=== PATIENT | female | born 1995 | race Caucasian/White ===

== ENCOUNTER 2019-12-24 20:02 | Emergency (ER) | payer OTHER ==
[2019-12-24 20:10] VITALS: BP 137/86; PULSE 89; RESP 18; TEMP 97.6
[2019-12-24] MEDS ORDERED: IBUPROFEN 600 MG TAB PO STA (20:18)
[2019-12-24] MEDS ORDERED: ACET/COD 300 MG/30 MG STARTER PACK 6 TAB BTL PO STA (20:18)
--- NOTE | 2019-12-24 20:33 | ED ---
General Adult HPI - General Chief complaint: Extremity Injury, Lower Stated complaint: R Knee Injury Time Seen by Provider: 12/24/19 20:12 Source: patient, RN notes reviewed Mode of arrival: wheelchair Limitations: no limitations - History of Present Illness Initial comments: 24-year-old female with a past medical history of asthma, migraines presents to the emergency department for a chief complaint of right knee pain. 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 The dog was on the table she twisted to grab the dog and felt a pop in her knee. States it hurts on the sides of the knee. States it is painful to bear weight. States she is here because she started having some tingling in her right foot as well. She was also told by urgent care that she can work tomorrow and patient does not feel she will be able to. She took one Motrin earlier today but otherwise has not taken anything for pain.Patient has no other complaints at this time including shortness of breath, chest pain, abdominal pain, nausea or vomiting, headache, or visual changes. - Related Data Home Medications Medication Instructions Recorded Confirmed Buta/APAP/Caf/Cod [id number] 1 each PO DAILY PRN 11/11/15 11/15/15 [Fioricet w/Cod [id number]] Triprevisen (0.25mg) 0.25 mg PO DAILY 11/11/15 11/15/15 Allergies Allergy/AdvReac Type Severity Reaction Status Date / Time amoxicillin [Amoxicillin] Allergy Rash/Hives Verified 12/24/19 20:13 Review of Systems ROS Statement: Those systems with pertinent positive or pertinent negative responses have been documented in the HPI. ROS Other: All systems not noted in ROS Statement are negative. Past Medical History Past Medical History: Asthma, Neurologic Disorder Additional Past Medical History / Comment(s): migraines, vertigo History of Any Multi-Drug Resistant Organisms: None Reported Past Surgical History: No Surgical Hx Reported Additional Past Surgical History / Comment(s): BMT Past Anesthesia/Blood Transfusion Reactions: Motion Sickness Past Psychological History: No Psychological Hx Reported Past Alcohol Use History: None Reported Past Drug Use History: None Reported - Past Family History Mother Family Medical History: No Reported History General Exam Limitations: no limitations General appearance: alert, in no apparent distress Head exam: Present: atraumatic, normocephalic, normal inspection Eye exam: Present: normal appearance, PERRL, EOMI. Absent: scleral icterus, conjunctival injection, periorbital swelling ENT exam: Present: normal exam, mucous membranes moist Neck exam: Present: normal inspection. Absent: tenderness, meningismus, lymphadenopathy Respiratory exam: Present: normal lung sounds bilaterally. Absent: respiratory distress, wheezes, rales, rhonchi, stridor Cardiovascular Exam: Present: regular rate, normal rhythm, normal heart sounds. Absent: systolic murmur, diastolic murmur, rubs, gallop, clicks Extremities exam: Present: normal capillary refill (Capillary refill less than 2 seconds, DP pulses 2+ in the right lower extremity.), other (Generalized anterior right knee tenderness. Sensation is intact throughout the lower extremity.). Absent: full ROM (Patient has 45 flexion of the right knee. She has nearly full extension however full extension elicits pain.), pedal edema, joint swelling (No significant edema noted of the right knee.), calf tenderness (No calf pain, tenderness, erythema, edema. Negative Homans sign.) Course Vital Signs 12/24/19 20:05 Temperature 97.6 F Pulse Rate 89 Respiratory 18 Rate Blood Pressure 137/86 O2 Sat by Pulse 100 Oximetry Medical Decision Making - Medical Decision Making HPI and physical exam as documented. Neurovascular status intact. Ray of the right knee does not show any evidence of fracture. Patient however will follow up with orthopedics for further evaluation. She was given crutches as well as an work note. Discussed rice therapy. Keron wrap applied. She will return for any worsening symptoms. Knee immobilizer was not applied because patient prefers knee be slightly flexed for comfort. Disposition Clinical Impression: Knee pain, right Disposition: HOME SELF-CARE Condition: Good Instructions (If sedation given, give patient instructions): Knee Sprain (ED) Additional Instructions: Please take Motrin Tylenol for pain. If pain is severe take Tylenol [address] taking this. Rest ice and elevate the right knee. Use Keron wrap as needed. Use crutches as needed. Follow-up with orthopedics by calling for an appointment Sunday. Return to the emergency room for any worsening symptoms. Is patient prescribed a controlled substance at d/c from ED?: No Referrals: Bryon Cody DO [Primary Care Provider] - 1-2 days Chad Montano MD [STAFF PHYSICIAN] - 1-2 days Time of Disposition: 20:49
--- NOTE | 2019-12-24 20:35 | XR ---
EXAMINATION TYPE: XR knee complete RT DATE OF EXAM: 12/24/2019 COMPARISON: NONE HISTORY: Pain TECHNIQUE: 3 views FINDINGS: I see no fracture nor dislocation. Joint spaces are fairly normal. There is no definite kne e joint effusion. IMPRESSION: Negative right knee exam.
== END 2019-12-24 21:01 | disposition home or self-care (01) ==
LOC: EC 20:02
DX: M25.561 Pain in right knee (principal); Z79.899 Other long term (current) drug therapy; Z88.0 Allergy status to penicillin
CPT/HCPCS: 99283

== ENCOUNTER 2019-12-31 19:29 | Observation (INO) | payer OTHER ==
[2019-12-31] MEDS ORDERED: SODIUM CHLORIDE 0.9% 1,000 ML IV STA ×2 (20:02→20:03)
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
[2019-12-31 20:31] LABS: Basophils % (A) 0 %; Eosinophils # (A) 0.1 k/uL (0-0.7); Eosinophils % (A) 2 %; HCT 43.3 % (34.0-46.0); HGB 14.1 gm/dL (11.4-16.0); Lymphocytes # (A) 1.4 k/uL (1.0-4.8); Lymphocytes % (A) 16 %; MCH 28.5 pg (25.0-35.0); MCHC 32.5 g/dL (31.0-37.0); MCV 87.7 fL (80.0-100.0); Mean Platelet Volume 7.7; Monocytes # (A) 0.5 k/uL (0-1.0); Monocytes % (A) 5 %; Neutrophils # (A) 6.6 k/uL (1.3-7.7); Neutrophils % (A) 75 %; Platelet Count 270 k/uL (150-450); RBC 4.94 m/uL (3.80-5.40); RDW 12.5 % (11.5-15.5); WBC 8.7 k/uL (3.8-10.6)
[2019-12-31 20:43] LABS: ALT 22 U/L (4-34); AST 31 U/L (14-36); African American GFR (CKD) >90 (>60 ml/min/1.73 sqM); Albumin 4.3 g/dL (3.5-5.0); Alkaline Phosphatase 62 U/L (38-126); Anion Gap 9 mmol/L; Blood Urea Nitrogen 16 mg/dL (7-17); Calcium 9.2 mg/dL (8.4-10.2); Carbon Dioxide 20 mmol/L (22-30); Chloride 109 mmol/L (98-107); Glucose 101 mg/dL (74-99); Non-African American GFR(CKD) >90 (>60 ml/min/1.73 sqM); Potassium 4.4 mmol/L (3.5-5.1); Sodium 138 mmol/L (137-145); Total Bilirubin 0.6 mg/dL (0.2-1.3); Total Protein 7.3 g/dL (6.3-8.2)
[2019-12-31 20:54] LABS: INR 1.1 (<1.2); Partial Thromboplastin Time 22.1 sec (22.0-30.0); Prothrombin Time 10.8 sec (9.0-12.0)
--- NOTE | 2019-12-31 21:06 | XR ---
EXAMINATION TYPE: XR chest 2V DATE OF EXAM: 12/31/2019 COMPARISON: Chest x-ray 1995. HISTORY: Syncope and weakness. TECHNIQUE: Frontal and lateral views of the chest are obtained. FINDINGS: There is no focal air space opacity, pleural effusion, or pneumothorax seen. The cardiac silhouette size is within normal limits. The osseous structures are intact. IMPRESSION: No acute cardiopulmonary process.
--- NOTE | 2019-12-31 21:07 | CT ---
EXAMINATION TYPE: CT brain wo con DATE OF EXAM: 12/31/2019 COMPARISON: MRI brain May 14, 2015 HISTORY: 1st seizure CT DLP: 1087 mGycm. Automated Exposure Control for Dose Reduction was Utilized. TECHNIQUE: CT scan of the head is performed without contrast. FINDINGS: There is no acute intracranial hemorrhage, mass effect, or midline shift identified. The ventricles and sulci are within normal limits in size. [place]-white matter differentiation is preserve d. The globes are intact and the visualized sinuses are clear. IMPRESSION: No acute intracranial hemorrhage or midline shift is seen.
[2019-12-31 21:47] LABS: Appearance,Urine Clear (Clear); Bilirubin,Urine Negative (Negative); Blood,Urine Negative (Negative); Color,Urine Yellow; Glucose,Urine (UA) Negative (Negative); Ketones,Urine Negative (Negative); Leukocyte Esterase,Urine Negative (Negative); Nitrite,Urine Negative (Negative); PH, Urine 6.5 (5.0-8.0); Protein,Urine Negative (Negative); Specific Gravity,Urine 1.023 (1.001-1.035); Urobilinogen,Urine <2.0 mg/dL (<2.0)
[2019-12-31 22:00] LABS: Amphetamine Screen,Urine Not Detected (NotDetected); Barbiturate Screen,Urine Not Detected (NotDetected); Benzodiazepines Screen,Urine Not Detected (NotDetected); Cocaine Screen,Urine Not Detected (NotDetected); Methadone Screen, Urine Not Detected (NotDetected); Opiate Screen,Urine Not Detected (NotDetected); Oxycodone Screen, Urine Not Detected (NotDetected); Phencyclidine Screen,Urine Not Detected (NotDetected); Tricyclic Antidepressant,Urine Not Detected (NotDetected); Urn Cannabinoid Scrn Not Detected (NotDetected)
[2019-12-31] MEDS ORDERED: KETOROLAC 15 MG/ML 1 ML VIAL IVP STA (22:20)
[2019-12-31] MEDS ORDERED: ONDANSETRON 4 MG/2 ML VIAL IVP PRN (22:27)
[2019-12-31] MEDS ORDERED: ACETAMINOPHEN TAB 325 MG TAB PO PRN (22:27)
[2019-12-31] MEDS ORDERED: IBUPROFEN 400 MG TAB PO PRN (22:27)
[2019-12-31] MEDS ORDERED: NALOXONE 0.4 MG/ML 1 ML VIAL IV PRN (22:27)
[2019-12-31] MEDS ORDERED: LORazepam 2 MG/ML INJ IV PRN (23:08)
[2020-01-01] MEDS: KETOROLAC 15 MG/ML 1 ML VIAL IVP SCH ×3 (00:07→13:30)
[2020-01-01] MEDS: SODIUM CHLORIDE 0.9% 1,000 ML IV SCH ×2 (00:17→08:28)
[2020-01-01 02:40] LABS: Glucose,Whole Blood 105 mg/dL (75-99)
[2020-01-01 06:54] LABS: Glucose,Whole Blood 94 mg/dL (75-99)
[2020-01-01 11:45] LABS: Glucose,Whole Blood 82 mg/dL (75-99)
[2020-01-01 12:15] VITALS: BP 114/74; RESP 17; TEMP 97.8
--- NOTE | 2020-01-01 13:06 | P.CNNES ---
History of Present Illness Consult date: 01/01/20 Requesting physician: Beatriz Mueller Reason for Consult: New onset seizure History of Present Illness: Patient is a 24-year-old female brought to the hospital by ambulance yesterday at 7:30 PM for syncopal spell and secondary seizure activity. Patient states that she carries a diagnosis of POTS syndrome that was diagnosed 6 years ago after she had a syncopal spell at a grocery store. Patient's symptoms have been controlled with increase amount of water and salt intake. If she has any symptoms, she tries to sit down and let it pass. Patient states that yesterday she was standing when she felt a syncopal spell coming. She sat down in the swing, but then the symptoms continued and she had a seizure-like episode. Her mother noticed that she was not breathing. She slapped her on the chest a few times and patient came to. She was out for a couple minutes. After she came to, she had another episode. Patient's mother laid her down and called EMS. EMS flow sheet not available in the chart. Patient's vitals on arrival was blood pressure 122/68, pulse rate [address] head showed no acute intracranial hemorrhage or midline shift. Visualized paranasal sinuses are clear. Chest x-ray is normal EKG shows normal sinus rhythm. CBC, UA, urine drug screen negative. PT/PTT normal. Chem-20 normal. Patient had an MRI of brain done on 05/14/2015 for "recurrent falls and dizziness", which was normal. Patient states that about a month ago she had an episode of near syncope, when she was coming out of the bathtub, after she had taken a hot shower. She felt a visual blackout, fuzzy, stood there for a few minutes and the symptoms passed. Patient states that since the diagnoses of POTS 6 years ago, she has been having episodes sporadically, about once a year. She makes sure that she stays well hydrated and takes extra salt. Patient states that last night she was laying in the bed, and has some jerking of the lower extremities as well as the upper extremities. She did not lose consciousness. No tongue bite or urinary incontinence. Neurology was consulted to rule out seizures. Patient denies any history of epilepsy. Patient does not take tobacco or alcohol. Review of Systems Tiredness. Denies headache, double vision, denies focal numbness tingling weakness. Denies any chest pain shortness or breath wheezing or cough. All other review of systems negative. Past Medical History Past Medical History: Asthma Additional Past Medical History / Comment(s): migraines, vertigo, POTS, PCOS, 12/24/19 dislocated right knee and has been in a brace for it and 50% weight bear on that leg History of Any Multi-Drug Resistant Organisms: None Reported Past Surgical History: No Surgical Hx Reported Additional Past Surgical History / Comment(s): tubes put in ears Past Anesthesia/Blood Transfusion Reactions: Motion Sickness Past Psychological History: No Psychological Hx Reported Smoking Status: Never smoker Past Alcohol Use History: Rare Past Drug Use History: None Reported - Past Family History Mother Family Medical History: No Reported History Medications and Allergies Home Medications Medication Instructions Recorded Confirmed Type No Known Home Medications 12/31/19 12/31/19 History Allergies Allergy/AdvReac Type Severity Reaction Status Date / Time amoxicillin [Amoxicillin] Allergy Rash/Hives Verified 12/31/19 22:00 peanuts AdvReac Nausea Uncoded 12/31/19 23:41 Physical Examination - Vital Signs Vital Signs: Vital Signs Temp Pulse Pulse Pulse Pulse Pulse Resp 01/01/20 06:23 98.2 F 72 18 01/01/20 02:59 130 H 01/01/20 02:37 97.8 F 112 H 12/31/19 23:41 98.0 F 57 L 18 12/31/19 22:36 98.0 F 66 18 12/31/19 21:30 69 18 12/31/19 20:05 84 100 82 12/31/19 19:51 97.8 F 91 18 BP BP BP BP Pulse Ox 01/01/20 06:23 116/75 97 01/01/20 02:59 01/01/20 02:37 133/84 99 12/31/19 23:41 112/77 98 12/31/19 22:36 120/76 97 12/31/19 21:30 111/84 98 12/31/19 20:05 121/85 113/87 103/65 12/31/19 19:51 122/68 99 Intake and Output 12/31/19 01/01/20 01/01/20 22:59 06:59 14:59 Intake Total 400 Balance 400 Intake: Intake, IV Titration 400 Amount Sodium Chloride 0.9% 1, 400 000 ml @ 100 mls/hr IV . Q10H [facility] Rx#:[id number] Other: Voiding Method Toilet # Voids 2 2 Weight 83.461 kg 83.461 kg On examination patient is a young female, in no acute distress. Patient is alert awake oriented to time place and person. Speech and language functions are normal. Attention and concentration fund of knowledge is adequate. On cranial nerve examination pupils are round and reacting to light, visual noriega are full on confrontation, extraocular muscles are intact with no nystagmus. Face is symmetric, tongue protrudes to the midline. Palatal elevation and sensation normal. Hearing and shoulder shrug normal. On muscle strength testing there is no pronator drift and the strength is normal in arms and legs distally and proximally reflexes are 1+ and plantars downgoing. Sensory touch is equal. No ataxia for [id number] testing tone and bulk of muscles normal. Gait deferred. No carotid bruit, S1 and S2 audible. Peripheral pulses present. No peripheral edema. Abdomen soft nontender, chest clear. Results - Laboratory Findings CBC and BMP: 12/31/19 20:04 12/31/19 20:04 Abnormal Lab Findings: Abnormal Labs 12/31/19 01/01/20 20:04 02:38 Chloride 109 H Carbon Dioxide 20 L Glucose 101 H POC Glucose (mg/dL) 105 H Assessment and Plan Assessment: * Probable convulsive syncope. Doubt seizures. * History of POTS diagnosed 6 years ago. Plan: * EEG to evaluate for any interictal epileptiform activity. * Hydration. * Patient's heart rate has been fluctuating on telemetry, ranging between 40s to 130s. May consider cardiology evaluation, if indicated. Addendum: EEG is normal. No indication for antiepileptic medication. Check orthostatics. Neurologically clear for discharge.
--- NOTE | 2020-01-01 14:25 | P.CRDCN ---
History of Present Illness History of present illness: HISTORY OF PRESENTING ILLNESS This is a pleasant 24-year-old female past medical history significant for POTS, asthma and migraines. She used to follow with Dr. Holt 6 yrs ago w hen she was diagnosed with POTS, but hasn't followed up since. We have been asked to see in consultation for syncope. She is seen and examined sitting up in bed in no acute distress with her mother at the bedside. Since being diagnosed with pots 6 years ago she has about 1-2 episodes of near syncope per year. She states typically when this occurs she drinks saltwater and she feels better. Yesterday she felt an episode coming on. Her preceding symptoms are nausea, palpitations, burning in the midsternal region, flushed/warm sensation throughout her body and feeling lightheaded. She walked over to sit down on the swing in her backyard until the past. She was sitting there with her sister when she lost consciousness. According to the mother she had twitching in her arms and hands and her eyes were rolling back in her head. She began to turn barnett in color and was extremely clammy. She could not palpate a pulse and she was not visibly breathing. EMS was notified. By the time EMS arrived on scene she had become responsive. Last night while laying in bed she again started to feel flushed, anxious and palpitations. She also was acutely diaphoretic and telemetry indicated her heart rate went up to 140 and was sinus tachycardia. DIAGNOSTICS EKG reveals sinus mechanism with no acute ST or T-wave abnormalities. Chest xray negative for an acute cardiopulmonary process. CT of the brain unremarkable. Orthostatic vital signs negative for change. Laboratory reviewed, CBC unremarkable, sodium 138, potassium 4.4, creatinine 0.66, cardiac enzymes negative x1.. She takes no daily medications. REVIEW OF SYSTEMS At the time of my exam: CONSTITUTIONAL: Denies fever or chills. CARDIOVASCULAR: Denies chest pain, shortness of breath, orthopnea, PND or palpitations. RESPIRATORY: Denies cough. GASTROINTESTINAL: Denies abdominal pain, diarrhea, constipation, nausea or vomiting. MUSCULOSKELETAL: Denies myalgias. NEUROLOGIC: Denies numbness, tingling or weakness. ENDOCRINE: Denies fatigue, weight change, polydipsia or polyurina. GENITOURINARY: Denies burning, hematuria or urgency with micturation. HEMATOLOGIC: Denies history of anemia or bleeding. PHYSICAL EXAMINATION Blood pressure 114/74 heart rate 71 afebrile and maintaining oxygen saturation on room air. CONSTITUTIONAL: No apparent distress. HEENT: Head is normocephalic. Pupils are equal, round. Sclerae anicteric. Mucous membranes of the mouth are moist. No JVD. No carotid bruit. CHEST EXAMINATION: Lungs are clear to auscultation. No chest wall tenderness is noted on palpation or with deep breathing. HEART EXAMINATION: Regular rate and rhythm. S1, S2 heard. No murmurs, gallops or rub. ABDOMEN: Soft, nontender. Positive bowel sounds. EXTREMITIES: 2+ peripheral pulses, no lower extremity edema and no calf tend erness. NEUROLOGIC EXAMINATION: Patient is awake, alert and oriented x3. ASSESSMENT Syncope Sinus tachycardia History of POTS PLAN Last nights episode symptoms not consistent with POTS as she was laying down and had not recently changed positions. The episode that brought her in sounds like possible seizure activity, neuro is currently evaluating. Echocardiogram has been ordered and will be reviewed. Check TSH. Apply ZACK arellano. Ongoing telemetry monitoring. Thank you kindly for this consultation. Nurse Practitioner note has been reviewed, I agree with a documented findings and plan of care. Patient was seen and examined. Past Medical History Past Medical History: Asthma Additional Past Medical History / Comment(s): migraines, vertigo, POTS, PCOS, 12/24/19 dislocated right knee and has been in a brace for it and 50% weight bear on that leg History of Any Multi-Drug Resistant Organisms: None Reported Past Surgical History: No Surgical Hx Reported Additional Past Surgical History / Comment(s): tubes put in ears Past Anesthesia/Blood Transfusion Reactions: Motion Sickness Past Psychological History: No Psychological Hx Reported Smoking Status: Never smoker Past Alcohol Use History: Rare Past Drug Use History: None Reported - Past Family History Mother Family Medical History: No Reported History Medications and Allergies Home Medications Medication Instructions Recorded Confirmed Type No Known Home Medications 12/31/19 12/31/19 History Allergies Allergy/AdvReac Type Severity Reaction Status Date / Time amoxicillin [Amoxicillin] Allergy Rash/Hives Verified 12/31/19 22:00 peanuts AdvReac Nausea Uncoded 12/31/19 23:41 Physical Exam Vitals: Vital Signs Temp Pulse Pulse Pulse Pulse Pulse Resp 01/01/20 12:14 97.8 F 71 17 01/01/20 06:23 98.2 F 72 18 01/01/20 02:59 130 H 01/01/20 02:37 97.8 F 112 H 12/31/19 23:41 98.0 F 57 L 18 12/31/19 22:36 98.0 F 66 18 12/31/19 21:30 69 18 12/31/19 20:05 84 100 82 12/31/19 19:51 97.8 F 91 18 BP BP BP BP Pulse Ox 01/01/20 12:14 114/74 98 01/01/20 06:23 116/75 97 01/01/20 02:59 01/01/20 02:37 133/84 99 12/31/19 23:41 112/77 98 12/31/19 22:36 120/76 97 12/31/19 21:30 111/84 98 12/31/19 20:05 121/85 113/87 103/65 12/31/19 19:51 122/68 99 Intake and Output 12/31/19 01/01/20 01/01/20 22:59 06:59 14:59 Intake Total 400 Balance 400 Intake: Intake, IV Titration 400 Amount Sodium Chloride 0.9% 1, 400 000 ml @ 100 mls/hr IV . Q10H [facility] Rx#:[id number] Other: Voiding Method Toilet # Voids 2 2 Weight 83.461 kg 83.461 kg Results 12/31/19 20:04 12/31/19 20:04 Cardiac Enzymes 12/31/19 12/31/19 Range/Units 20:04 20:04 AST 31 (14-36) U/L Troponin I <0.012 (0.000-0.034) ng/mL Coagulation 12/31/19 Range/Units 20:04 PT 10.8 (9.0-12.0) sec APTT 22.1 (22.0-30.0) sec CBC 12/31/19 Range/Units 20:04 WBC 8.7 (3.8-10.6) k/uL RBC 4.94 (3.80-5.40) m/uL Hgb 14.1 (11.4-16.0) gm/dL Hct 43.3 (34.0-46.0) % Plt Count 270 (150-450) k/uL Comprehensive Metabolic Panel 12/31/19 Range/Units 20:04 Sodium 138 (137-145) mmol/L Potassium 4.4 (3.5-5.1) mmol/L Chloride 109 H (98-107) mmol/L Carbon Dioxide 20 L (22-30) mmol/L BUN 16 (7-17) mg/dL Creatinine 0.66 (0.52-1.04) mg/dL Glucose 101 H (74-99) mg/dL Calcium 9.2 (8.4-10.2) mg/dL AST 31 (14-36) U/L ALT 22 (4-34) U/L Alkaline Phosphatase 62 (38-126) U/L Total Protein 7.3 (6.3-8.2) g/dL Albumin 4.3 (3.5-5.0) g/dL Current Medications Generic Name Dose Route Start Last Admin Trade Name Freq PRN Reason Stop Dose Admin Acetaminophen 650 mg 12/31/19 22:27 Tylenol Tab PO Q6HR PRN Mild Pain or Fever > 100.5 Sodium Chloride 1,000 mls @ 100 mls/hr 12/31/19 22:30 01/01/20 08:28 Saline 0.9% IV 100 mls/hr .Q10H [facility] Administration Ibuprofen 400 mg 12/31/19 22:27 Motrin PO Q6HR PRN Mild Pain or Fever > 100.5 Ketorolac Tromethamine 15 mg 01/01/20 00:00 01/01/20 13:30 Toradol IVP 01/03/20 23:09 15 mg Q6HR [facility] Administration Lorazepam 1 mg 12/31/19 23:08 Ativan IV ONCE PRN Seizures Naloxone HCl 0.2 mg 12/31/19 22:27 Narcan IV Q2M PRN Opioid Reversal Ondansetron HCl 4 mg 12/31/19 22:27 Zofran IVP Q8HR PRN Nausea And Vomiting Intake and Output 12/31/19 01/01/20 01/01/20 22:59 06:59 14:59 Intake Total 400 Balance 400 Intake: Intake, IV Titration 400 Amount Sodium Chloride 0.9% 1, 400 000 ml @ 100 mls/hr IV . Q10H [facility] Rx#:[id number] Other: Voiding Method Toilet # Voids 2 2 Weight 83.461 kg 83.461 kg 12/31/19 20:04 12/31/19 20:04
--- NOTE | 2020-01-01 15:37 | P.HPIM ---
History of Present Illness 24-year-old pleasant female came in after a syncopal episode followed by seizure. Patient does have history of postural orthostatic tachycardia syndrome. Patient is not on any medications patient is on dietary management for that patient did not have any syncopal syncope for about any or. Patient had a normal like symptom that she is about to have a syncope felt lightheaded nauseous and had a syncope and the patient's mother who was present there felt like patient stopped breathing did even slapped her chest few times, patient the mother did not feel her pulse and patient started having seizures in the lower part of the body. Patient did not lose bowel or bladder Continence did not have any postictal symptoms. CT of the head is essentially within normal limits, rest of the workup is essentially within normal limits. 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 Patient is undergoing EEG. A s per neurology for EEG is negative patient will not need any medications for epilepsy and can be discharged. Cardiology was consulted as well. Echocardiogram was ordered. Review of Systems REVIEW OF SYSTEMS: CONSTITUTIONAL: No fever, no malaise, no fatigue. HEENT: No recent visual problems or hearing problems. Denied any sore throat. CARDIOVASCULAR: No chest pain, orthopnea, PND, no palpitations. PULMONARY: No shortness of breath, no cough, no hemoptysis. GASTROINTESTINAL: No diarrhea, no nausea, no vomiting, no abdominal pain. NEUROLOGICAL: No headaches, no weakness, no numbness. HEMATOLOGICAL: Denies any bleeding or petechiae. GENITOURINARY: Denies any burning micturition, frequency, or urgency. MUSCULOSKELETAL/RHEUMATOLOGICAL: Denies any joint pain, swelling, or any muscle pain. ENDOCRINE: Denies any polyuria or polydipsia. The rest of the 14-point review of systems is negative. Past Medical History Past Medical History: Asthma Additional Past Medical History / Comment(s): migraines, vertigo, POTS, PCOS, 12/24/19 dislocated right knee and has been in a brace for it and 50% weight bear on that leg History of Any Multi-Drug Resistant Organisms: None Reported Past Surgical History: No Surgical Hx Reported Additional Past Surgical History / Comment(s): tubes put in ears Past Anesthesia/Blood Transfusion Reactions: Motion Sickness Past Psychological History: No Psychological Hx Reported Smoking Status: Never smoker Past Alcohol Use History: Rare Past Drug Use History: None Reported - Past Family History Mother Family Medical History: No Reported History Medications and Allergies Home Medications Medication Instructions Recorded Confirmed Type No Known Home Medications 12/31/19 12/31/19 History Allergies Allergy/AdvReac Type Severity Reaction Status Date / Time amoxicillin [Amoxicillin] Allergy Rash/Hives Verified 12/31/19 22:00 peanuts AdvReac Nausea Uncoded 12/31/19 23:41 Physical Exam Vitals: Vital Signs Temp Pulse Pulse Pulse Pulse Pulse Resp 01/01/20 12:14 97.8 F 71 17 01/01/20 08:00 80 17 01/01/20 06:23 98.2 F 72 18 01/01/20 02:59 130 H 01/01/20 02:37 97.8 F 112 H 12/31/19 23:41 98.0 F 57 L 18 12/31/19 22:36 98.0 F 66 18 12/31/19 21:30 69 18 12/31/19 20:05 84 100 82 12/31/19 19:51 97.8 F 91 18 BP BP BP BP Pulse Ox 01/01/20 12:14 114/74 98 01/01/20 08:00 01/01/20 06:23 116/75 97 01/01/20 02:59 01/01/20 02:37 133/84 99 12/31/19 23:41 112/77 98 12/31/19 22:36 120/76 97 12/31/19 21:30 111/84 98 12/31/19 20:05 121/85 113/87 103/65 12/31/19 19:51 122/68 99 Intake and Output 01/01/20 01/01/20 01/01/20 06:59 14:59 22:59 Intake Total 400 1760 Balance 400 1760 Intake: Intake, IV Titration 400 800 Amount Sodium Chloride 0.9% 1, 400 800 000 ml @ 100 mls/hr IV . Q10H [facility] Rx#:[id number] Oral 960 Other: Voiding Method Toilet Toilet # Voids 2 5 Weight 83.461 kg PHYSICAL EXAMINATION: GENERAL: The patient is alert and oriented x3, not in any acute distress. Well developed, well nourished. HEENT: Pupils are round and equally reacting to light. EOMI. No scleral icterus. No conjunctival pallor. Normocephalic, atraumatic. No pharyngeal erythema. No thyromegaly. CARDIOVASCULAR: S1 and S2 present. No murmurs, rubs, or gallops. PULMONARY: Chest is clear to auscultation, no wheezing or crackles. ABDOMEN: Soft, nontender, nondistended, normoactive bowel sounds. No palpable organomegaly. MUSCULOSKELETAL: No joint swelling or deformity. EXTREMITIES: No cyanosis, clubbing, or pedal edema. NEUROLOGICAL: Gross neurological examination did not reveal any focal deficits. SKIN: No rashes. Results CBC & Chem 7: 12/31/19 20:04 12/31/19 20:04 Labs: Abnormal Lab Results - Last 24 Hours (Table) 12/31/19 01/01/20 Range/Units 20:04 02:38 Chloride 109 H (98-107) mmol/L Carbon Dioxide 20 L (22-30) mmol/L Glucose 101 H (74-99) mg/dL POC Glucose (mg/dL) 105 H (75-99) mg/dL Thrombosis Risk Factor Assmnt - Choose All That Apply Any of the Below Risk Factors Present?: Yes Each Factor Represents 1 point: Obesity (BMI >25) Other Risk Factors: No Other congenital or acquired thrombophilia - If yes, enter type in comment: No Thrombosis Risk Factor Assessment Total Risk Factor Score: 1 Thrombosis Risk Factor Assessment Level: Low Risk Assessment and Plan Plan: -Syncope with the secondary seizures, most probably convulsive syncope: Patient will undergo EEG if that's negative patient will be discharged I'll leave the decision of echocardiogram to cardiology. 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 Patient will be discharged if cleared by cardiology and neurology
--- NOTE | 2020-01-01 15:38 | P.DS ---
Providers Date of admission: 12/31/19 22:45 Attending physician: Carlos Manuel Cline Consults: 12/31/19 22:27 Consult Physician Stat Consulting Provider: Thai Barrera Consult Reason/Comments: new onset seizure Do you want consulting provider notified?: Yes 01/01/20 12:31 Consult Physician Routine Consulting Provider: [facility] Consult Reason/Comments: Syncope Do you want consulting provider notified?: Yes Primary care physician: Bryon Cody [facility] Hospital Course: Please refer to my history of present illness for further details Patient Condition at Discharge: Stable Plan - Discharge Summary Discharge Rx Participant: Yes New Discharge Prescriptions: No Action No Known Home Medications Discharge Medication List No Known Home Medications 12/31/19 [History] Follow up Appointment(s)/Referral(s): Giovani Holt MD [STAFF PHYSICIAN] - 1 Week Bryon Cody DO [Primary Care Provider] - 3 Days Discharge Disposition: HOME SELF-CARE
--- NOTE | 2020-01-01 15:55 | EEG ---
ELECTROENCEPHALOGRAM REPORT DATE OF SERVICE: 01/01/2020 PREAMBLE: This is a 24-year-old female with history of recurrent syncope, came with possible syncope versus seizure. This study is performed to evaluate for any epileptiform activity. EEG FINDINGS: This is a 21-channel routine EEG recording in a patient utilizing 10-20 international system with referential and bipolar montages. Background consists of well developed, well regulated, moderate voltage activity in 9-10 hertz alpha. Background is posterior- dominant and reactive to eye opening and closing. Photic driving response was seen with some flash frequencies. Mild drowsiness was seen, but deeper stages of sleep were not attained. No focal or generalized epileptiform activity was seen. Hyperventilation revealed no abnormalities. EKG channel lead revealed no arrhythmia. IMPRESSION: This is a normal awake and drowsy EEG. No focal, lateralized or epileptiform activity was seen. MMODL / IJN: [id number] /
[2020-01-01 16:11] VITALS: PULSE 82
--- NOTE | 2020-01-02 10:41 | ECHOF ---
Referral Reason:Syncope MEASUREMENTS -------- HEIGHT: 167.6 cm WEIGHT: 83.5 kg BP: RVIDd: 2.3 cm (< 3.3) IVSd: 0.7 cm (0.6 - 1.1) LVIDd: 4.4 cm (3.9 - 5.3) LVPWd: 0.8 cm (0.6 - 1.1) IVSs: 1.4 cm LVIDs: 2.4 cm LVPWs: 1.6 cm Ao Diam: 2.4 cm (2.0 - 3.7) AV Cusp: 1.6 cm (1.5 - 2.6) LA Diam: 3.2 cm (2.7 - 3.8) MV EXCURSION: 17.918 mm (> 18.000) MV EF SLOPE: 108 mm/s (70 - 150) EPSS: 1.0 cm MV E Beny: 0.66 m/s MV DecT: 185 ms MV A Beny: 0.71 m/s MV E/A Ratio: 0.93 RAP: 5.00 mmHg RVSP: 7.89 mmHg FINDINGS -------- This was a technically adequate study. The left ventricular size is normal. Left ventricular wall thickness is normal. Overall left vent ricular systolic function is normal with, an EF between 55 - 60 %. The right ventricle is normal in size. The left atrial size is normal. The right atrial size is normal. The aortic valve is trileaflet and appears structurally normal. The mitral valve is normal. There is trace mitral regurgitation. The tricuspid valve appears structurally normal. Trace tricuspid regurgitation present. Right ben tricular systolic pressure is normal at < 35 mmHg. There is no pulmonic regurgitation present. The aortic root size is normal. Normal inferior vena cava with normal inspiratory collapse consistent with estimated right atrial pre ssure of 5 mmHg. There is no pericardial effusion. CONCLUSIONS -------- 1. The left ventricular size is normal. 2. Left ventricular wall thickness is normal. 3. Overall left ventricular systolic function is normal with, an EF between 55 - 60 %. 4. There is trace mitral regurgitation. 5. Trace tricuspid regurgitation present. UTILIZATION SPECIALIST: Erin Israel RDCS
== END 2020-01-01 16:51 | disposition home or self-care (01) ==
LOC: EC 19:29 → 6NMEDSUR 22:45
PROVIDERS: ADMIT Hospitalist; ATTEND Hospitalist
DX: R56.9 Unspecified convulsions (principal); R55 Syncope and collapse; R29.6 Repeated falls; R42 Dizziness and giddiness; G90.9 Disorder of the autonomic nervous system, unspecified; J45.909 Unspecified asthma, uncomplicated; G43.909 Migraine, unspecified, not intractable, without status migrainosus; Z98.890 Other specified postprocedural states; I49.8 Other specified cardiac arrhythmias; E28.2 Polycystic ovarian syndrome; Z88.0 Allergy status to penicillin; Z91.010 Allergy to peanuts; R00.0 Tachycardia, unspecified
CPT/HCPCS: 96376; 96361; 96374; 99285; 36415; 95816; 93005; 93306; 80053; 84443; 83735; 84484; 85025; 85610; 85730; 81003; 81025; 80306; 71046; 70450; G0378 ×2; J1885 ×2

== ENCOUNTER 2020-07-13 11:46 | Emergency (ER) | payer OTHER ==
[2020-07-13 11:52] VITALS: TEMP 97.7
[2020-07-13 14:24] LABS: Basophils % (A) 0 %; Eosinophils # (A) 0.2 k/uL (0-0.7); Eosinophils % (A) 1 %; HGB 15.7 gm/dL (11.4-16.0); Lymphocytes # (A) 2.6 k/uL (1.0-4.8); Lymphocytes % (A) 23 %; MCH 30.5 pg (25.0-35.0); MCHC 34.9 g/dL (31.0-37.0); MCV 87.6 fL (80.0-100.0); Mean Platelet Volume 7.6; Monocytes # (A) 0.6 k/uL (0-1.0); Monocytes % (A) 5 %; Neutrophils # (A) 7.8 k/uL (1.3-7.7); Neutrophils % (A) 69 %; Platelet Count 322 k/uL (150-450); RBC 5.14 m/uL (3.80-5.40); RDW 12.6 % (11.5-15.5); WBC 11.3 k/uL (3.8-10.6)
--- NOTE | 2020-07-13 14:41 | ED ---
General Adult HPI - General Chief complaint: Chest Pain Stated complaint: Heart Palpitations Time Seen by Provider: 07/13/20 14:22 Source: patient, RN notes reviewed Mode of arrival: ambulatory Limitations: no limitations - History of Present Illness Initial comments: Patient is a 25-year-old female that presents emergency department with a one- week history of palpitations. She noted that her heart is been racing infrequently over the last week, with no known inciting incidents or circumstance. She noted that she does have a history of dysthymia and usually has a slower heart rate. She drinks about a gallon of water to help with her chronic conditions. She denied any shortness of breath headache nausea vomiting diarrhea constipation fever fatigue chills lightheadedness dizziness change in vision. - Related Data Home Medications Medication Instructions Recorded Confirmed No Known Home Medications 12/31/19 12/31/19 Allergies Allergy/AdvReac Type Severity Reaction Status Date / Time amoxicillin [Amoxicillin] Allergy Rash/Hives Verified 07/13/20 11:50 peanuts AdvReac Nausea Uncoded 07/13/20 11:50 Review of Systems ROS Statement: Those systems with pertinent positive or pertinent negative responses have been documented in the HPI. ROS Other: All systems not noted in ROS Statement are negative. Past Medical History Past Medical History: Asthma Additional Past Medical History / Comment(s): migraines, vertigo, POTS, PCOS, 12/24/19 dislocated right knee and has been in a brace for it and 50% weight bear on that leg History of Any Multi-Drug Resistant Organisms: None Reported Past Surgical History: No Surgical Hx Reported Additional Past Surgical History / Comment(s): tubes put in ears Past Anesthesia/Blood Transfusion Reactions: Motion Sickness Past Psychological History: No Psychological Hx Reported Smoking Status: Never smoker Past Alcohol Use History: Rare Past Drug Use History: None Reported - Past Family History Mother Family Medical History: No Reported History General Exam Limitations: no limitations General appearance: alert, in no apparent distress Head exam: Present: atraumatic, normocephalic, normal inspection Eye exam: Present: normal appearance, PERRL, EOMI. Absent: scleral icterus, conjunctival injection, periorbital swelling ENT exam: Present: normal exam, mucous membranes moist Neck exam: Present: normal inspection. Absent: tenderness, meningismus, lymphadenopathy Respiratory exam: Present: normal lung sounds bilaterally. Absent: respiratory distress, wheezes, rales, rhonchi, stridor Cardiovascular Exam: Present: regular rate, normal rhythm, normal heart sounds. Absent: systolic murmur, diastolic murmur, rubs, gallop, clicks GI/Abdominal exam: Present: soft, normal bowel sounds. Absent: distended, tenderness, guarding, rebound, rigid Extremities exam: Present: normal inspection, full ROM, normal capillary refill. Absent: tenderness, pedal edema, joint swelling, calf tenderness Back exam: Present: normal inspection Neurological exam: Present: alert, oriented X3, CN II-XII intact Psychiatric exam: Present: normal affect, normal mood Skin exam: Present: warm, dry, intact, normal color. Absent: rash Course Vital Signs 07/13/20 07/13/20 11:50 15:34 Temperature 97.7 F Pulse Rate 84 87 Respiratory 16 18 Rate Blood Pressure 178/93 136/79 O2 Sat by Pulse 100 99 Oximetry EKG Findings - EKG Comments: EKG Findings:: Ventricular rate 85 bpm, KS interval 132 ms, QRS duration 86 ms, QT/QTC 370/440 ms, PRT axes 62/83/67. Normal sinus rhythm with sinus arrhythmia, normal ECG. Medical Decision Making - Medical Decision Making 25-year-old female complaining of heart palpitations for the last week. Labs, EKG, chest x-ray ordered. Labs unremarkable, except slightly elevated white count at 11.3 - Lab Data Result diagrams: 07/13/20 14:01 07/13/20 14:01 Lab Results 07/13/20 07/13/20 07/13/20 Range/Units 14:01 14:01 14:01 WBC 11.3 H (3.8-10.6) k/uL RBC 5.14 (3.80-5.40) m/uL Hgb 15.7 (11.4-16.0) gm/dL Hct 45.0 (34.0-46.0) % MCV 87.6 (80.0-100.0) fL MCH 30.5 (25.0-35.0) pg MCHC 34.9 (31.0-37.0) g/dL RDW 12.6 (11.5-15.5) % Plt Count 322 (150-450) k/uL MPV 7.6 Neutrophils % 69 % Lymphocytes % 23 % Monocytes % 5 % Eosinophils % 1 % Basophils % 0 % Neutrophils # 7.8 H (1.3-7.7) k/uL Lymphocytes # 2.6 (1.0-4.8) k/uL Monocytes # 0.6 (0-1.0) k/uL Eosinophils # 0.2 (0-0.7) k/uL Basophils # 0.0 (0-0.2) k/uL PT 11.1 (9.0-12.0) sec INR 1.0 (<1.2) APTT 24.5 (22.0-30.0) sec Sodium 138 (137-145) mmol/L Potassium 4.4 (3.5-5.1) mmol/L Chloride 106 (98-107) mmol/L Carbon Dioxide 23 (22-30) mmol/L Anion Gap 9 mmol/L BUN 9 (7-17) mg/dL Creatinine 0.65 (0.52-1.04) mg/dL Est GFR (CKD-EPI)AfAm >90 (>60 ml/min/1.73 sqM) Est GFR (CKD-EPI)NonAf >90 (>60 ml/min/1.73 sqM) Glucose 91 (74-99) mg/dL Calcium 9.4 (8.4-10.2) mg/dL Total Bilirubin 0.5 (0.2-1.3) mg/dL AST 22 (14-36) U/L ALT 17 (4-34) U/L Alkaline Phosphatase 74 (38-126) U/L Troponin I (0.000-0.034) ng/mL Total Protein 7.5 (6.3-8.2) g/dL Albumin 4.4 (3.5-5.0) g/dL 07/13/20 Range/Units 14:01 WBC (3.8-10.6) k/uL RBC (3.80-5.40) m/uL Hgb (11.4-16.0) gm/dL Hct (34.0-46.0) % MCV (80.0-100.0) fL MCH (25.0-35.0) pg MCHC (31.0-37.0) g/dL RDW (11.5-15.5) % Plt Count (150-450) k/uL MPV Neutrophils % % Lymphocytes % % Monocytes % % Eosinophils % % Basophils % % Neutrophils # (1.3-7.7) k/uL Lymphocytes # (1.0-4.8) k/uL Monocytes # (0-1.0) k/uL Eosinophils # (0-0.7) k/uL Basophils # (0-0.2) k/uL PT (9.0-12.0) sec INR (<1.2) APTT (22.0-30.0) sec Sodium (137-145) mmol/L Potassium (3.5-5.1) mmol/L Chloride (98-107) mmol/L Carbon Dioxide (22-30) mmol/L Anion Gap mmol/L BUN (7-17) mg/dL Creatinine (0.52-1.04) mg/dL Est GFR (CKD-EPI)AfAm (>60 ml/min/1.73 sqM) Est GFR (CKD-EPI)NonAf (>60 ml/min/1.73 sqM) Glucose (74-99) mg/dL Calcium (8.4-10.2) mg/dL Total Bilirubin (0.2-1.3) mg/dL AST (14-36) U/L ALT (4-34) U/L Alkaline Phosphatase (38-126) U/L Troponin I <0.012 (0.000-0.034) ng/mL Total Protein (6.3-8.2) g/dL Albumin (3.5-5.0) g/dL - EKG Data -: EKG Interpreted by Ma EKG shows normal: sinus rhythm Rate: normal EKG Comments: Ventricular rate 85 bpm, KS interval 132 ms, QRS duration 86 ms, QT/QTC 370/440 ms, PRT axes 62/83/67. Normal sinus rhythm with sinus arrhythmia, normal ECG. - Radiology Data Radiology results: report reviewed, image reviewed Chest x-ray: No acute cardiopulmonary process. No significant change from prior Disposition Clinical Impression: Palpitations Disposition: HOME SELF-CARE Condition: Stable Instructions (If sedation given, give patient instructions): Heart Palpitations (ED) Additional Instructions: Please return to the Emergency Department if symptoms worsen or any other concerns. Follow-up primary care in 2-4 days. Is patient prescribed a controlled substance at d/c from ED?: No Referrals: Escobar,Bryon, DO [Primary Care Provider] - 1-2 days Time of Disposition: 15:42
[2020-07-13 14:43] LABS: ALT 17 U/L (4-34); AST 22 U/L (14-36); African American GFR (CKD) >90 (>60 ml/min/1.73 sqM); Albumin 4.4 g/dL (3.5-5.0); Alkaline Phosphatase 74 U/L (38-126); Anion Gap 9 mmol/L; Blood Urea Nitrogen 9 mg/dL (7-17); Calcium 9.4 mg/dL (8.4-10.2); Carbon Dioxide 23 mmol/L (22-30); Chloride 106 mmol/L (98-107); Glucose 91 mg/dL (74-99); Non-African American GFR(CKD) >90 (>60 ml/min/1.73 sqM); Partial Thromboplastin Time 24.5 sec (22.0-30.0); Potassium 4.4 mmol/L (3.5-5.1); Prothrombin Time 11.1 sec (9.0-12.0); Sodium 138 mmol/L (137-145); Total Bilirubin 0.5 mg/dL (0.2-1.3); Total Protein 7.5 g/dL (6.3-8.2)
--- NOTE | 2020-07-13 14:54 | XR ---
EXAMINATION TYPE: XR chest 2V DATE OF EXAM: 07/13/2020 COMPARISON: Chest x-ray December 31, 2019 HISTORY: Chest pain. TECHNIQUE: Frontal and lateral views of the chest are obtained. FINDINGS: Pectus excavatum deformity on lateral view redemonstrated. There is no suspicious new focal air space opacity, pleural effusion, or pneumothorax seen. The cardiac silhouette size remains with in normal limits. The osseous structures are intact. IMPRESSION: No acute cardiopulmonary process. No significant change from prior.
[2020-07-13 15:36] VITALS: PULSE 87; RESP 18
[2020-07-13 15:59] VITALS: BP 120/73
== END 2020-07-13 15:57 | disposition home or self-care (01) ==
LOC: EC 11:46
DX: R00.2 Palpitations (principal); J45.909 Unspecified asthma, uncomplicated; Z88.0 Allergy status to penicillin
CPT/HCPCS: 36415; 71046; 80053; 84484; 85025; 85610; 85730; 93005; 99285

== ENCOUNTER → 2020-07-23 | Outpatient (CLI) | payer OTHER | END | disposition home or self-care (01) | LOC: LABWHC1 14:27 | PROVIDERS: ATTEND Family Medicine | DX: J45.20 Mild intermittent asthma, uncomplicated (principal) | CPT/HCPCS: U0003; C9803; U0005 ==

== ENCOUNTER → 2021-07-30 | Outpatient (CLI) | payer OTHER ==
[~2021-07-30] MED LIST: RABIES VACCINE (PCEC) 2.5 UNIT KIT IM ONE
== END | disposition home or self-care (01) ==
LOC: LABWHC1 17:39
PROVIDERS: ATTEND Emergency Medicine
DX: Z20.3 Contact with and (suspected) exposure to rabies (principal)
CPT/HCPCS: 90675

== ENCOUNTER 2021-10-16 12:40 | Emergency (ER) | payer OTHER ==
[2021-10-16 13:09] VITALS: BP 121/80; PULSE 71; RESP 18; TEMP 97.8
[2021-10-16] MEDS ORDERED: LIDOCAINE 1% INJ 10MG/ML (5 ML VIAL-PF) SQ ONE (13:21)
--- NOTE | 2021-10-16 13:30 | ED ---
Animal Bite HPI - General Chief Complaint: Animal Bite Stated Complaint: [facility] - dog bite lt wrist Time Seen by Provider: 10/16/21 13:13 Source: patient, RN notes reviewed Mode of arrival: ambulatory Limitations: no limitations - History of Present Illness Initial Comments: Patient is a 26-year-old female presents the emergency room after a dog bite at work. 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 She states that her vaccinations along with animals vaccinations are up-to-date. She did have to complete a release vaccination series several months ago after getting bit by a dog with unknown rabies status. She has a past medical history significant for asthma, migraines, Pots and PCOS. She denies any other complaints or concerns at this time. - Related Data Home Medications Medication Instructions Recorded Confirmed Propranolol [Inderal] 10 mg PO BID 06/23/21 10/13/21 Sertraline HCl [Zoloft] 50 mg PO HS 06/23/21 10/13/21 Previous Rx's Medication Instructions Recorded Doxycycline Monohydrate [Monodox] 100 mg PO Q12HR #14 cap 07/27/21 Sulfamethox-Tmp 800-160Mg [Bactrim 1 tab PO Q12HR 5 Days #10 tab 10/16/21 DS 800-160 mg] Allergies Allergy/AdvReac Type Severity Reaction Status Date / Time amoxicillin [Amoxicillin] Allergy Rash/Hives Verified 10/16/21 13:06 Penicillins Allergy Rash/Hives Verified 10/16/21 13:06 peanuts AdvReac Nausea Uncoded 10/13/21 12:20 Review of Systems ROS Statement: Those systems with pertinent positive or pertinent negative responses have been documented in the HPI. ROS Other: All systems not noted in ROS Statement are negative. Past Medical History Past Medical History: Asthma Additional Past Medical History / Comment(s): migraines, vertigo, POTS, PCOS, 12/24/19 dislocated right knee and has been in a brace for it and 50% weight bear on that leg History of Any Multi-Drug Resistant Organisms: None Reported Past Surgical History: No Surgical Hx Reported Additional Past Surgical History / Comment(s): tubes put in ears Past Anesthesia/Blood Transfusion Reactions: Motion Sickness Past Psychological History: No Psychological Hx Reported Smoking Status: Never smoker Past Alcohol Use History: None Reported Past Drug Use History: None Reported - Past Family History Mother Family Medical History: No Reported History General Exam Limitations: no limitations General appearance: alert, in no apparent distress Head exam: Present: atraumatic, normocephalic, normal inspection Eye exam: Present: normal appearance, PERRL, EOMI. Absent: scleral icterus, conjunctival injection, periorbital swelling ENT exam: Present: normal exam, mucous membranes moist Neck exam: Present: normal inspection. Absent: tenderness, meningismus, lymphadenopathy Respiratory exam: Absent: respiratory distress, accessory muscle use Cardiovascular Exam: Present: regular rate GI/Abdominal exam: Present: soft, normal bowel sounds. Absent: distended, tenderness, guarding, rebound, rigid Left Forearm Wrist exam: Present: full ROM, tenderness, laceration. Absent: swelling, ecchymosis, deformity, crepitus, dislocation, erythema Vascular: Absent: vascular compromise Neurological exam: Present: alert, oriented X3, CN II-XII intact Psychiatric exam: Present: normal affect, normal mood Skin exam: Present: other (laceration secondary to bite left forearm) Course Vital Signs 10/16/21 13:07 Temperature 97.8 F Pulse Rate 71 Respiratory 18 Rate Blood Pressure 121/80 O2 Sat by Pulse 99 Oximetry Procedures - Laceration Laceration #1 Consent Obtained: verbal consent Indication: laceration Site: upper extremity Size (cm): 1 Description: linear Depth: simple, single layer Anesthetic Used: lidocaine 1% Anesthesia Technique: local infiltration Pre-repair: wound explored Type of Sutures: nylon Size of Sutures: 4-0 Technique: simple, interrupted Patient Tolerated Procedure: well, no complications Medical Decision Making - Medical Decision Making Vaccinations up-to-date. No indication for diagnostic testing including imaging or laboratory studies. Pain stable without analgesic intervention. Patient tolerated suture placement well without complications. Will discharge home on oral antibiotic prophylaxis. Encourage good wound care monitoring for infection. Case discussed with Dr. Timmons. Disposition Clinical Impression: Bite by animal Disposition: HOME SELF-CARE Condition: Good Instructions (If sedation given, give patient instructions): Animal Bite (ED) Additional Instructions: Keep wound clean and dry. Have sutures removed in 7-10 days. Complete antibiotic course. Monitor for signs and symptoms of infection and call your PCP or return to emergency services if needed if infection symptoms develop. Please return to the Emergency Department if symptoms worsen or any other concerns. Prescriptions: Sulfamethox-Tmp 800-160Mg [Bactrim DS 800-160 mg] 1 tab PO Q12HR 5 Days #10 tab Is patient prescribed a controlled substance at d/c from ED?: No Referrals: Bryon Cody DO [Primary Care Provider] - 1-2 days Time of Disposition: 13:56
== END 2021-10-16 14:05 | disposition home or self-care (01) ==
LOC: EC 12:40
DX: S51.852A Open bite of left forearm, initial encounter (principal); J45.909 Unspecified asthma, uncomplicated; Z88.0 Allergy status to penicillin; Z91.010 Allergy to peanuts; W54.0XXA Bitten by dog, initial encounter
CPT/HCPCS: 99283; 12001; J2001

== ENCOUNTER 2021-11-15 16:33 | Emergency (ER) | payer OTHER ==
[2021-11-15 16:59] VITALS: BP 150/108; PULSE 100; RESP 18; TEMP 98.5
--- NOTE | 2021-11-15 18:06 | ED ---
Skin/Abscess/FB HPI - General Chief complaint: Skin/Abscess/Foreign Body Stated complaint: hives Time Seen by Provider: 11/15/21 18:06 Source: patient Mode of arrival: ambulatory Limitations: no limitations - History of Present Illness Initial comments: This is a 26-year-old male presents emergency Department with urticaria which has been worse at night and after heat exposure. There is been no shortness of breath. No urinary symptoms. No ENT symptoms. Patient states about a month ago and the talk to Dr. sepulveda that she had at work. Patient states that resolved now this has developed over the past week has been recurrent. Patient has no fever or chills. No history of autoimmune diseases. No history of other contacts. No new detergents. No new medications. Patient has been taking famotidine and antihistamines. No headache, no fever or chills, no changes in vision or hearing, no sore throat or difficulty with speech, no neck pain, no chest pain or shortness of breath, no abdominal pain, no nausea or vomiting, no changes in urination or bowel movements, no numbness or tingling, no extremity pain, Past medical, surgical, social, and family history reviewed. MD complaint: rash - Related Data Home Medications Medication Instructions Recorded Confirmed Propranolol [Inderal] 10 mg PO BID 06/23/21 11/10/21 Sertraline HCl [Zoloft] 50 mg PO HS 06/23/21 11/10/21 Previous Rx's Medication Instructions Recorded Doxycycline Monohydrate [Monodox] 100 mg PO Q12HR #14 cap 07/27/21 Sulfamethox-Tmp 800-160Mg [Bactrim 1 tab PO Q12HR 5 Days #10 tab 10/16/21 DS 800-160 mg] predniSONE 50 mg PO DAILY #6 tab 11/15/21 Allergies Allergy/AdvReac Type Severity Reaction Status Date / Time amoxicillin [Amoxicillin] Allergy Rash/Hives Verified 11/15/21 16:59 Penicillins Allergy Rash/Hives Verified 11/15/21 16:59 peanuts AdvReac Nausea Uncoded 11/15/21 16:59 Review of Systems ROS Statement: Those systems with pertinent positive or pertinent negative responses have been documented in the HPI. ROS Other: All systems not noted in ROS Statement are negative. Past Medical History Past Medical History: Asthma Additional Past Medical History / Comment(s): migraines, vertigo, POTS, PCOS, 12/24/19 dislocated right knee and has been in a brace for it and 50% weight bear on that leg History of Any Multi-Drug Resistant Organisms: None Reported Past Surgical History: No Surgical Hx Reported Additional Past Surgical History / Comment(s): tubes put in ears Past Anesthesia/Blood Transfusion Reactions: Motion Sickness Past Psychological History: No Psychological Hx Reported, Depression Smoking Status: Never smoker Past Alcohol Use History: None Reported Past Drug Use History: None Reported - Past Family History Mother Family Medical History: No Reported History General Exam - General Exam Comments Initial Comments: Nontoxic appearing female in no acute distress. Limitations: no limitations General appearance: alert, in no apparent distress Head exam: Present: atraumatic, normocephalic, normal inspection Eye exam: Present: normal appearance, PERRL, EOMI. Absent: scleral icterus, conjunctival injection, periorbital swelling ENT exam: Present: normal exam, mucous membranes moist Neck exam: Present: normal inspection. Absent: tenderness, meningismus, lymphadenopathy Respiratory exam: Present: normal lung sounds bilaterally. Absent: respiratory distress, wheezes, rales, rhonchi, stridor Cardiovascular Exam: Present: regular rate, normal rhythm, normal heart sounds. Absent: systolic murmur, diastolic murmur, rubs, gallop, clicks GI/Abdominal exam: Present: soft, normal bowel sounds. Absent: distended, tenderness, guarding, rebound, rigid Extremities exam: Present: normal inspection, full ROM, normal capillary refill. Absent: tenderness, pedal edema, joint swelling, calf tenderness Back exam: Present: normal inspection Neurological exam: Present: alert, oriented X3, CN II-XII intact Psychiatric exam: Present: normal affect, normal mood Skin exam: Present: warm, dry, intact, normal color, rash, urticaria (Urticaria noted. No vesicles. No lesions. No secondary infection. The torso and is mild at this point.) Course Vital Signs 11/15/21 16:57 Temperature 98.5 F Pulse Rate 100 Respiratory 18 Rate Blood Pressure 150/108 O2 Sat by Pulse 98 Oximetry Medical Decision Making - Medical Decision Making Regarding urticaria. Patient stable otherwise. Discussed possible etiologies to include autoimmune disease referred back to her primary care physician. Prednisone 50 mg daily for 6 days. Patient was told to return to the ER for any signs or symptoms worsen. Told to return immediately if any other problems arise. All questions answered. Treatment plan discussed. Patient in agreement Every effort has been made to ensure accuracy of this dictation. However, due to the limitations of electronic medical records and dictation devices, errors in charting still occur. Supervising Dr. Timmons Disposition Clinical Impression: Urticaria Disposition: HOME SELF-CARE Condition: Stable Instructions (If sedation given, give patient instructions): Urticaria (ED) Additional Instructions: Follow-up with your regular physician as directed. Return to the ER immediately if any symptoms worsen, new symptoms arise, or any other problems develop. Prescriptions: predniSONE 50 mg PO DAILY #6 tab Is patient prescribed a controlled substance at d/c from ED?: No Referrals: Bryon Cody DO [Primary Care Provider] - 1-2 days Time of Disposition: 18:35
== END 2021-11-15 19:21 | disposition home or self-care (01) ==
LOC: EC 16:33
DX: L50.9 Urticaria, unspecified (principal); J45.909 Unspecified asthma, uncomplicated; Z88.0 Allergy status to penicillin; Z91.010 Allergy to peanuts
CPT/HCPCS: 99283

== ENCOUNTER 2021-12-20 21:26 | Emergency (ER) | payer OTHER ==
[2021-12-20 21:31] VITALS: BP 129/81; PULSE 120; RESP 16
[2021-12-20 21:55] LABS: Basophils % (A) 0 %; Eosinophils # (A) 0.1 k/uL (0-0.7); Eosinophils % (A) 1 %; HCT 42.9 % (34.0-46.0); Lymphocytes # (A) 0.4 k/uL (1.0-4.8); Lymphocytes % (A) 6 %; MCH 28.3 pg (25.0-35.0); MCHC 32.6 g/dL (31.0-37.0); Mean Platelet Volume 7.8; Monocytes # (A) 0.4 k/uL (0-1.0); Monocytes % (A) 7 %; Neutrophils # (A) 5.1 k/uL (1.3-7.7); Neutrophils % (A) 84 %; Platelet Count 238 k/uL (150-450); RBC 4.93 m/uL (3.80-5.40); RDW 12.6 % (11.5-15.5)
[2021-12-20 22:06] LABS: ALT 17 U/L (4-34); AST 21 U/L (14-36); African American GFR (CKD) >90 (>60 ml/min/1.73 sqM); Albumin 4.1 g/dL (3.5-5.0); Alkaline Phosphatase 76 U/L (38-126); Anion Gap 12 mmol/L; Blood Urea Nitrogen 9 mg/dL (7-17); Calcium 9.2 mg/dL (8.4-10.2); Carbon Dioxide 20 mmol/L (22-30); Chloride 105 mmol/L (98-107); Glucose 98 mg/dL (74-99); Non-African American GFR(CKD) >90 (>60 ml/min/1.73 sqM); Potassium 4.1 mmol/L (3.5-5.1); Sodium 137 mmol/L (137-145); Total Bilirubin 0.2 mg/dL (0.2-1.3); Total Protein 6.8 g/dL (6.3-8.2)
[2021-12-20 22:24] LABS: INR 1.1 (<1.2); Partial Thromboplastin Time 26.2 sec (22.0-30.0); Prothrombin Time 11.9 sec (9.0-12.0)
[2021-12-21] MEDS ORDERED: KETOROLAC 15 MG/ML 1 ML VIAL ONE (01:25)
[2021-12-21] MEDS ORDERED: DEXAMETHASONE SOD PHOSPHATE 10 MG/ML 1 ML VIAL ONE (01:25)
[2021-12-21] MEDS ORDERED: SODIUM CHLORIDE 0.9% 1,000 ML BAG ONE (01:25)
[2021-12-21] MEDS ORDERED: ACETAMINOPHEN TAB 500 MG TAB ONE (01:25)
[2021-12-21] MEDS ORDERED: PROCHLORPERAZINE INJ 10 MG/2 ML VIAL ONE (01:25)
[2021-12-21 02:16] VITALS: TEMP 99.5
[2021-12-21 03:18] LABS: C Reactive Protein 1.3 mg/dL (<1.0); Magnesium 1.6 mg/dL (1.6-2.3); Phosphorus 3.6 mg/dL (2.5-4.5); T4, Free (Free Thyroxine) 1.16 ng/dL (0.78-2.19)
--- NOTE | 2021-12-21 04:59 | XR ---
EXAM: XR Chest, 1 View CLINICAL HISTORY: covid positive TECHNIQUE: Frontal view of the chest. COMPARISON: No relevant prior studies available. FINDINGS: Lungs: No consolidation or mass. Pleural space: No acute findings Heart: No cardiomegaly. Bones/joints: No acute findings. IMPRESSION: No acute cardiopulmonary process.
== END 2021-12-21 02:37 | disposition home or self-care (01) ==
LOC: EC 21:26
DX: U07.1 COVID-19 (principal)
CPT/HCPCS: 36415 ×2; 93005; 84439; 80053; 83735; 84100; 84443; 84484; 85025; 85610; 85730; 86140; 71045; 99285; 96374; 96375; 96361; J0780; J1100; J1885

== ENCOUNTER 2022-08-17 14:56 | Emergency (ER) | payer OTHER ==
[2022-08-17 15:19] VITALS: RESP 18; TEMP 98.1
[2022-08-17] MEDS ORDERED: SODIUM CHLORIDE 0.9% 1,000 ML IV ONE (15:48)
[2022-08-17] MEDS ORDERED: KETOROLAC 15 MG/ML 1 ML VIAL IVP STA (15:48)
[2022-08-17 16:34] LABS: Basophils % (A) 0 %; Eosinophils # (A) 0.1 k/uL (0-0.7); Eosinophils % (A) 2 %; HCT 40.5 % (34.0-46.0); HGB 13.6 gm/dL (11.4-16.0); Lymphocytes # (A) 1.9 k/uL (1.0-4.8); Lymphocytes % (A) 23 %; MCH 28.3 pg (25.0-35.0); MCHC 33.5 g/dL (31.0-37.0); MCV 84.7 fL (80.0-100.0); Monocytes # (A) 0.5 k/uL (0-1.0); Monocytes % (A) 6 %; Neutrophils # (A) 5.9 k/uL (1.3-7.7); Neutrophils % (A) 69 %; Platelet Count 306 k/uL (150-450); RBC 4.79 m/uL (3.80-5.40); RDW 13.3 % (11.5-15.5); WBC 8.6 k/uL (3.8-10.6)
[2022-08-17 16:44] LABS: Appearance,Urine Clear (Clear); Bacteria,Urine Occasional /hpf; Bilirubin,Urine Negative (Negative); Blood,Urine Moderate (Negative); Color,Urine Light Yellow; Glucose,Urine (UA) Negative (Negative); Ketones,Urine Negative (Negative); Leukocyte Esterase,Urine Moderate (Negative); Mucus,Urine Rare /hpf; Nitrite,Urine Negative (Negative); Protein,Urine Negative (Negative); RBC,Urine 14 /hpf (0-5); Specific Gravity,Urine 1.006 (1.001-1.035); Squamous Epithelial Cell,Urine <1 /hpf (0-4); Urobilinogen,Urine <2.0 mg/dL (<2.0); WBC,Urine 28 /hpf (0-5)
[2022-08-17 16:53] LABS: ALT 19 U/L (4-34); AST 20 U/L (14-36); African American GFR (CKD) >90 (>60 ml/min/1.73 sqM); Albumin 3.8 g/dL (3.5-5.0); Alkaline Phosphatase 75 U/L (38-126); Anion Gap 10 mmol/L; Blood Urea Nitrogen 5 mg/dL (7-17); Calcium 8.7 mg/dL (8.4-10.2); Carbon Dioxide 24 mmol/L (22-30); Chloride 109 mmol/L (98-107); Glucose 98 mg/dL (74-99); Non-African American GFR(CKD) >90 (>60 ml/min/1.73 sqM); Potassium 3.8 mmol/L (3.5-5.1); Sodium 143 mmol/L (137-145); Total Bilirubin 0.4 mg/dL (0.2-1.3); Total Protein 6.5 g/dL (6.3-8.2)
--- NOTE | 2022-08-17 17:15 | CT ---
CT abdomen pelvis wo con Date Of Exam: 08/17/2022 History: 27 yo F ED patient; flank pain and urinating blood clots TECHNIQUE: CT scan of the abdomen and pelvis is performed without oral or IV contrast. CT DLP: 925.9 mGycm. Automated Exposure Control for Dose Reduction was utilized. Comparison: None Findings: LUNG BASES: No significant abnormality is appreciated. LIVER/GB: No significant abnormality is appreciated. PANCREAS: No significant abnormality is seen. SPLEEN: No significant abnormality is seen. ADRENALS: No significant abnormality is seen. KIDNEYS/URETERS: No acute process. No hydronephrosis or hydroureter or calcifications. BOWEL: No significant abnormality is seen. Appendix has normal appearance. Colonic stool volume withi n normal limits. PELVIC VISCERA: No gross abnormality seen. LYMPH NODES: No greater than 1cm abdominal or pelvic lymph nodes are appreciated. OSSEOUS STRUCTURES: No significant abnormality is seen. Limitation of the study: Without IV contrast there is noted sensitivity for focal visceral lesions, f illing defects, and vascular pathology. IMPRESSION: No acute process.
--- NOTE | 2022-08-17 17:38 | ED ---
General Adult HPI - General Chief complaint: Abdominal Pain Stated complaint: urinating clots Time Seen by Provider: 08/17/22 15:36 Source: patient Mode of arrival: ambulatory Limitations: no limitations - History of Present Illness Initial comments: 27-year-old female with no significant past medical history presents the emergency department with acute low back pain. She is also complaining of accompanying symptoms of hematuria and dysuria. She denies personal history of kidney stones. She's never had this before. She denies any injury or trauma. She denies any fever, fatigue, shortness of breath, cough, nausea, vomiting, melena, hematochezia. Patient's last menstrual period was 08/12/2022 - Related Data Home Medications Medication Instructions Recorded Confirmed Propranolol [Inderal] 10 mg PO BID 06/23/21 08/17/22 Sertraline HCl [Zoloft] 50 mg PO HS 06/23/21 08/17/22 Albuterol Inhaler [Ventolin Hfa 2 puff INHALATION RT-Q6H PRN 08/17/22 08/17/22 Inhaler] Previous Rx's Medication Instructions Recorded Cephalexin [Keflex] 500 mg PO BID #10 cap 08/17/22 Allergies Allergy/AdvReac Type Severity Reaction Status Date / Time adhesive tape Allergy Rash/Hives Verified 08/17/22 15:19 amoxicillin [Amoxicillin] Allergy Rash/Hives Verified 08/17/22 15:19 gluten Allergy Rash/Hives Verified 08/17/22 15:20 Penicillins Allergy Rash/Hives Verified 08/17/22 15:19 peanuts AdvReac Nausea Uncoded 08/17/22 15:19 Review of Systems ROS Statement: Those systems with pertinent positive or pertinent negative responses have been documented in the HPI. ROS Other: All systems not noted in ROS Statement are negative. Past Medical History Past Medical History: Asthma Additional Past Medical History / Comment(s): migraines, vertigo, POTS, PCOS, 12/24/19 dislocated right knee and has been in a brace for it and 50% weight bear on that leg. chronic dehydration History of Any Multi-Drug Resistant Organisms: None Reported Past Surgical History: No Surgical Hx Reported Additional Past Surgical History / Comment(s): tubes put in ears Past Anesthesia/Blood Transfusion Reactions: Motion Sickness Past Psychological History: No Psychological Hx Reported Smoking Status: Never smoker Past Alcohol Use History: None Reported Past Drug Use History: None Reported - Past Family History Mother Family Medical History: No Reported History General Exam Limitations: no limitations General appearance: alert, in no apparent distress Head exam: Present: atraumatic, normocephalic, normal inspection Eye exam: Present: normal appearance, PERRL, EOMI. Absent: scleral icterus, conjunctival injection, periorbital swelling ENT exam: Present: normal exam, mucous membranes moist Neck exam: Present: normal inspection. Absent: tenderness, meningismus, lymphadenopathy Respiratory exam: Present: normal lung sounds bilaterally. Absent: respiratory distress, wheezes, rales, rhonchi, stridor Cardiovascular Exam: Present: regular rate, normal rhythm, normal heart sounds. Absent: systolic murmur, diastolic murmur, rubs, gallop, clicks GI/Abdominal exam: Present: soft, normal bowel sounds. Absent: distended, tenderness, guarding, rebound, rigid Extremities exam: Present: normal inspection, full ROM, normal capillary refill. Absent: tenderness, pedal edema, joint swelling, calf tenderness Back exam: Present: normal inspection Neurological exam: Present: alert, oriented X3, CN II-XII intact Psychiatric exam: Present: normal affect, normal mood Skin exam: Present: warm, dry, intact, normal color. Absent: rash Course Vital Signs 08/17/22 08/17/22 08/17/22 15:15 16:00 17:58 Temperature 98.1 F Pulse Rate 97 78 77 Respiratory 18 18 18 Rate Blood Pressure 116/72 134/78 124/66 O2 Sat by Pulse 99 99 99 Oximetry Medical Decision Making - Medical Decision Making Was pt. sent in by a medical professional or institution (, PA, DRYWALL APPLICATION SUPERVISOR, urgent care, hospital, or long-term...) When possible be specific @ -[No] Did you speak to anyone other than the patient for history (EMS, parent, family, police, friend...)? What history was obtained from this source @ -[No] Did you review nursing and triage notes (agree or disagree)? Why? @ -[I reviewed and agree with nursing and triage notes] Were old charts reviewed (outside hosp., previous admission, EMS record, old EKG, old radiological studies, urgent care reports/EKG's, long-term records)? Report findings @ -[No old charts were reviewed] Differential Diagnosis (chest pain, altered mental status, abdominal pain women, abdominal pain men, vaginal bleeding, weakness, fever, dyspnea, syncope, headache, dizziness, GI bleed, back pain, seizure, CVA, palpatations, mental health, musculoskeletal)? @ -[not applicable] EKG interpreted by me (3pts min.). @ -[As above] X-rays interpreted by me (1pt min.). @ -[None done] CT interpreted by me (1pt min.). @ -CT abdomen and pelvis negative for any evidence of renal lithiasis or hydronephrosis U/S interpreted by me (1pt. min.). @ -[None done] What testing was considered but not performed or refused? (CT, X-rays, U/S, labs)? Why? @ -[None] What meds were considered but not given or refused? Why? @ -[None] Did you discuss the management of the patient with other professionals (professionals i.e. , PA, DRYWALL APPLICATION SUPERVISOR, lab, RT, psych nurse, social media assistant, clearing distribution clerk, teacher, contracting officer, major case detective)? Give summary @ -[No] Was smoking cessation discussed for >3mins.? @ -[No] Was critical care preformed (if so, how long)? @ -[No] Were there social determinants of health that impacted care today? How? (Homelessness, low income, unemployed, alcoholism, drug addiction, transportation, low edu. Level, literacy, decrease access to med. care, correction, rehab)? @ -[No] Was there de-escalation of care discussed even if they declined (Discuss DNR or withdrawal of care, Hospice)? DNR status @ -[No] What co-morbidities impacted this encounter? (DM, HTN, Smoking, COPD, CAD, Cancer, CVA, ARF, Chemo, Hep., AIDS, mental health diagnosis, sleep apnea, morbid obesity)? @ -[None] Was patient admitted / discharged? Hospital course, mention meds given and route, prescriptions, significant lab abnormalities, going to OR and other pertinent info. @ -Discharged. This is a 27-year-old female who presents to the emergency department with flank pain. patient had a thorough history and physical exam performed while in the ED. Physical exam is essentially unremarkable heart rate regular rate and rhythm lungs clear to auscultation bilaterally, abdomen soft nontender. Patient had lab work and imaging performed which were essentially negative. UA consistent with UTI. I discussed the results in detail with the patient verbalized understanding and all questions were addressed. Return precautions were discussed she was given a prescription for Keflex Patient to be discharge at this time. Return precautions were discussed. Patient discharged in stable condition. Case discussed with Dr. woods [facility] who agrees with plan of care Undiagnosed new problem with uncertain prognosis? @ -[No] Drug Therapy requiring intensive monitoring for toxicity (Heparin, Nitro, Insulin, Cardizem)? @ -[No] Were any procedures done? @ -[No] Diagnosis/symptom? @ -UTI Acute, or Chronic, or Acute on Chronic? @ -acute Uncomplicated (without systemic symptoms) or Complicated (systemic symptoms)? @ -uncomplicated Side effects of treatment? @ -[No] Exacerbation, Progression, or Severe Exacerbation? @ -[No] Poses a threat to life or bodily function? How? (Chest pain, [place], SC, pneumonia, PE, COPD, DKA, ARF, appy, cholecystitis, CVA, Diverticulitis, Homicidal, Suicidal, threat to staff... and all critical care pts) @ -low likelihood - Lab Data Result diagrams: 08/17/22 16:18 08/17/22 16:18 Lab Results 08/17/22 08/17/22 08/17/22 Range/Units 16:18 16:18 16:18 WBC 8.6 (3.8-10.6) k/uL RBC 4.79 (3.80-5.40) m/uL Hgb 13.6 (11.4-16.0) gm/dL Hct 40.5 (34.0-46.0) % MCV 84.7 (80.0-100.0) fL MCH 28.3 (25.0-35.0) pg MCHC 33.5 (31.0-37.0) g/dL RDW 13.3 (11.5-15.5) % Plt Count 306 (150-450) k/uL MPV 8.0 Neutrophils % 69 % Lymphocytes % 23 % Monocytes % 6 % Eosinophils % 2 % Basophils % 0 % Neutrophils # 5.9 (1.3-7.7) k/uL Lymphocytes # 1.9 (1.0-4.8) k/uL Monocytes # 0.5 (0-1.0) k/uL Eosinophils # 0.1 (0-0.7) k/uL Basophils # 0.0 (0-0.2) k/uL Sodium 143 (137-145) mmol/L Potassium 3.8 (3.5-5.1) mmol/L Chloride 109 H (98-107) mmol/L Carbon Dioxide 24 (22-30) mmol/L Anion Gap 10 mmol/L BUN 5 L (7-17) mg/dL Creatinine 0.64 (0.52-1.04) mg/dL Est GFR (CKD-EPI)AfAm >90 (>60 ml/min/1.73 sqM) Est GFR (CKD-EPI)NonAf >90 (>60 ml/min/1.73 sqM) Glucose 98 (74-99) mg/dL Calcium 8.7 (8.4-10.2) mg/dL Total Bilirubin 0.4 (0.2-1.3) mg/dL AST 20 (14-36) U/L ALT 19 (4-34) U/L Alkaline Phosphatase 75 (38-126) U/L Total Protein 6.5 (6.3-8.2) g/dL Albumin 3.8 (3.5-5.0) g/dL Urine Color Urine Appearance (Clear) Urine pH (5.0-8.0) Ur Specific [place] (1.001-1.035) Urine Protein (Negative) Urine Glucose (UA) (Negative) Urine Ketones (Negative) Urine Blood (Negative) Urine Nitrite (Negative) Urine Bilirubin (Negative) Urine Urobilinogen (<2.0) mg/dL Ur Leukocyte Esterase (Negative) Urine RBC (0-5) /hpf Urine WBC (0-5) /hpf Ur Squamous Epith Cells (0-4) /hpf Urine Bacteria (None) /hpf Urine Mucus (None) /hpf Urine HCG, Qual Not Detected (Not Detectd) 08/17/22 Range/Units 16:18 WBC (3.8-10.6) k/uL RBC (3.80-5.40) m/uL Hgb (11.4-16.0) gm/dL Hct (34.0-46.0) % MCV (80.0-100.0) fL MCH (25.0-35.0) pg MCHC (31.0-37.0) g/dL RDW (11.5-15.5) % Plt Count (150-450) k/uL MPV Neutrophils % % Lymphocytes % % Monocytes % % Eosinophils % % Basophils % % Neutrophils # (1.3-7.7) k/uL Lymphocytes # (1.0-4.8) k/uL Monocytes # (0-1.0) k/uL Eosinophils # (0-0.7) k/uL Basophils # (0-0.2) k/uL Sodium (137-145) mmol/L Potassium (3.5-5.1) mmol/L Chloride (98-107) mmol/L Carbon Dioxide (22-30) mmol/L Anion Gap mmol/L BUN (7-17) mg/dL Creatinine (0.52-1.04) mg/dL Est GFR (CKD-EPI)AfAm (>60 ml/min/1.73 sqM) Est GFR (CKD-EPI)NonAf (>60 ml/min/1.73 sqM) Glucose (74-99) mg/dL Calcium (8.4-10.2) mg/dL Total Bilirubin (0.2-1.3) mg/dL AST (14-36) U/L ALT (4-34) U/L Alkaline Phosphatase (38-126) U/L Total Protein (6.3-8.2) g/dL Albumin (3.5-5.0) g/dL Urine Color Light Yellow Urine Appearance Clear (Clear) Urine pH 6.0 (5.0-8.0) Ur Specific [place] 1.006 (1.001-1.035) Urine Protein Negative (Negative) Urine Glucose (UA) Negative (Negative) Urine Ketones Negative (Negative) Urine Blood Moderate H (Negative) Urine Nitrite Negative (Negative) Urine Bilirubin Negative (Negative) Urine Urobilinogen <2.0 (<2.0) mg/dL Ur Leukocyte Esterase Moderate H (Negative) Urine RBC 14 H (0-5) /hpf Urine WBC 28 H (0-5) /hpf Ur Squamous Epith Cells <1 (0-4) /hpf Urine Bacteria Occasional H (None) /hpf Urine Mucus Rare H (None) /hpf Urine HCG, Qual (Not Detectd) Disposition Clinical Impression: Cystitis Disposition: HOME SELF-CARE Condition: Stable Instructions (If sedation given, give patient instructions): Urinary Tract Infection in Women (ED) Prescriptions: Cephalexin [Keflex] 500 mg PO BID #10 cap Is patient prescribed a controlled substance at d/c from ED?: No Referrals: Bryon Cody DO [Primary Care Provider] - 1-2 days Time of Disposition: 17:37
[2022-08-17 17:59] VITALS: BP 124/66; PULSE 77
== END 2022-08-17 17:59 | disposition home or self-care (01) ==
LOC: EC 14:56
DX: N30.91 Cystitis, unspecified with hematuria (principal); J45.909 Unspecified asthma, uncomplicated; Z88.0 Allergy status to penicillin; Z91.010 Allergy to peanuts; Z91.09 Other allergy status, other than to drugs and biological substances; Z88.8 Allergy status to other drugs, medicaments and biological substances; Z79.899 Other long term (current) drug therapy
CPT/HCPCS: 36415; 80053; 85025; 81001; 81025; 74176; 99284; 96374; J1885

== ENCOUNTER 2022-12-15 16:56 | Emergency (ER) | payer OTHER ==
--- NOTE | 2022-12-15 18:11 | ED ---
Arrhythmia/Palpitations HPI - General Source: patient Mode of arrival: ambulatory Limitations: no limitations <Brandi Hull - Last Filed: 12/15/22 18:11> <Joanne Augustin - Last Filed: 12/16/22 17:59> - General Chief Complaint: Arrhythmia/Palpitations Stated Complaint: LOW HEART RATE Time Seen by Provider: 12/15/22 18:11 - History of Present Illness Initial Comments: 27-year-old female presenting with chief complaint of low heart rate. States that she was at work today and began feeling dizzy, her heart rate was about 39. She has history of POTS (Brandi Hull) Patient is a 27-year-old female who presents to the emergency department for bradycardia. Patient has history of POTS she takes propranolol 10 mg BID. Patient took one dose this morning. She was at work this afternoon when she started to feel lightheaded with numbness and tingling to her extremities. Patient noticed her pulse was 39 on her watch. Patient took 4000 mg of sodium which minimally improved her symptoms. She denies chest pain and shortness of breath. Denies syncopal episode. Denies headache, fever, upper respiratory symptoms. 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 She denies history of arrhythmia. (Joanne Augustin) - Related Data Home Medications Medication Instructions Recorded Confirmed Propranolol [Inderal] 10 mg PO BID 06/23/21 12/14/22 Sertraline HCl [Zoloft] 50 mg PO HS 06/23/21 12/14/22 Allergies Allergy/AdvReac Type Severity Reaction Status Date / Time adhesive tape Allergy Rash/Hives Verified 12/15/22 18:11 amoxicillin [Amoxicillin] Allergy Rash/Hives Verified 12/15/22 18:11 gluten Allergy Rash/Hives Verified 12/15/22 18:11 Penicillins Allergy Rash/Hives Verified 12/15/22 18:11 peanuts AdvReac Nausea Uncoded 12/15/22 18:11 Review of Systems ROS Other: All systems not noted in ROS Statement are negative. <Brandi Hull - Last Filed: 12/15/22 18:11> ROS Other: All systems not noted in ROS Statement are negative. <Joanne Augustin - Last Filed: 12/16/22 17:59> ROS Statement: Those systems with pertinent positive or pertinent negative responses have been documented in the HPI. Past Medical History Past Medical History: Asthma Additional Past Medical History / Comment(s): migraines, vertigo, POTS, PCOS, 12/24/19 dislocated right knee and has been in a brace for it and 50% weight bear on that leg. chronic dehydration History of Any Multi-Drug Resistant Organisms: None Reported Past Surgical History: No Surgical Hx Reported Additional Past Surgical History / Comment(s): tubes put in ears Past Anesthesia/Blood Transfusion Reactions: Motion Sickness Smoking Status: Never smoker - Past Family History Mother Family Medical History: No Reported History <Brandi Hull - Last Filed: 12/15/22 18:11> General Exam <Brandi Hull - Last Filed: 12/15/22 18:11> General appearance: alert Head exam: Present: atraumatic, normocephalic, normal inspection Eye exam: Present: normal appearance, PERRL, EOMI. Absent: scleral icterus, conjunctival injection, periorbital swelling Respiratory exam: Present: normal lung sounds bilaterally. Absent: respiratory distress, wheezes, rales, rhonchi, stridor Cardiovascular Exam: Present: regular rate, normal rhythm, normal heart sounds. Absent: systolic murmur, diastolic murmur, rubs, gallop, clicks Extremities exam: Present: normal inspection, full ROM, normal capillary refill Neurological exam: Present: alert Expanded Sensory exam: Upper Extremity Light Touch: Normal, Lower Extremity Light Touch: Normal Motor strength exam: RUE: 5, LUE: 5, RLE: 5, LLE: 5 Psychiatric exam: Present: normal affect, normal mood Skin exam: Present: warm, dry, intact, normal color. Absent: rash <Joanne Augustin - Last Filed: 12/16/22 17:59> - General Exam Comments Initial Comments: Visual Physical Exam Vital signs reviewed General: Well-appearing, nontoxic, no acute distress. 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] Pulse Rate [ Standing [employer] Player ] Pulse Rate [ Supine [employer] Player] Respiratory 15 18 18 Rate Blood Pressure 137/93 138/92 128/84 Blood Pressure [Right Arm Sitting] Blood Pressure [Right Arm Standing] Blood Pressure [Right Arm Supine] O2 Sat by Pulse 100 100 100 Oximetry 12/15/22 12/15/22 12/15/22 20:05 21:00 21:35 Temperature 98.2 F Pulse Rate 60 67 Pulse Rate [ 70 Sitting [employer] League [employer] Player] Pulse Rate [ 88 Standing [employer] Player ] Pulse Rate [ 54 L Supine [employer] Player] Respiratory 18 18 Rate Blood Pressure 132/95 132/82 Blood Pressure 141/100 [Right Arm Sitting] Blood Pressure 143/114 [Right Arm Standing] Blood Pressure 133/80 [Right Arm Supine] O2 Sat by Pulse 100 100 Oximetry Medical Decision Making - Lab Data Result diagrams: 12/15/22 19:06 12/15/22 19:06 <Joanne Augustin - Last Filed: 12/16/22 17:59> - Medical Decision Making EKG taken at 19:35, interpreted by myself Sinus bradycardia, no ST changes ventricular rate 55, TN interval 176, QRS duration 72, QTC 401 Was pt. sent in by a medical professional or institution (NASRIN Vergara, COMMUNITY SUPPORT SPECIALIST, urgent care, hospital, or retirement...) When possible be specific @ -No Did you speak to anyone other than the patient for history (EMS, parent, family, police, friend...)? What history was obtained from this source @ -No Did you review nursing and triage notes (agree or disagree)? Why? @ -I reviewed and agree with nursing and triage notes Were old charts reviewed (outside hosp., previous admission, EMS record, old EKG, old radiological studies, urgent care reports/EKG's, retirement records)? Report findings @ -No old charts were reviewed Differential Diagnosis (chest pain, altered mental status, abdominal pain women, abdominal pain men, vaginal bleeding, weakness, fever, dyspnea, syncope, headache, dizziness, GI bleed, back pain, seizure, CVA, palpatations, mental health)? @ -Differential Dizziness: Benign paroxysmal positional Vertigo, Menieres disease, otitis media, acoustic neuroma, vertebrobasilar insufficiency, cerebellar stroke, encephalitis, hypovolemic, arrhythmia, coronary artery syndrome, anemia, this is not meant to be an all-inclusive list EKG interpreted by me (3pts min.). @ -As above X-rays interpreted by me (1pt min.). No cardiopulmonary process CT interpreted by me (1pt min.). @ -None done U/S interpreted by me (1pt. min.). @ -None done What testing was considered but not performed or refused? (CT, X-rays, U/S, labs)? Why? @ -None What meds were considered but not given or refused? Why? @ -None Did you discuss the management of the patient with other professionals (professionals i.e. , PA, COMMUNITY SUPPORT SPECIALIST, lab, RT, psych nurse, social worker health services, snowboard designer, teacher, tax revenue officer, medical case worker)? Give summary @ -No Was smoking cessation discussed for >3mins.? @ -No Was critical care preformed (if so, how long)? @ -No Were there social determinants of health that impacted care today? How? (Homelessness, low income, unemployed, alcoholism, drug addiction, tra nsportation, low edu. Level, literacy, decrease access to med. care, usp, rehab)? @ -No Was there de-escalation of care discussed even if they declined (Discuss DNR or withdrawal of care, Hospice)? DNR status @ -No What co-morbidities impacted this encounter? (DM, HTN, Smoking, COPD, CAD, Cancer, CVA, ARF, Chemo, Hep., AIDS, mental health diagnosis, sleep apnea, morbid obesity)? @ -None Was patient admitted / discharged? Hospital course, mention meds given and route, prescriptions, significant lab abnormalities, going to OR and other pertinent info. @ Patient presenting for bradycardia and lightheadedness. Patient is well- appearing and in no apparent distress. Pulse is in the 50s which is unusual for patient. Orthostatics are positive due to increase of pulse from 54 to 88 from supine to standing. EKG shows sinus bradycardia, ventricular rate of 55.Labs are relatively unremarkable. Chest x-ray interpreted by myself showed no acute cardiopulmonary process. Patient given fluid bolus. Pulse did improve increased to the 60's. On reevaluation patient on longer feels lightheaded her numbness and tingling has improved. There is no neurological deficit. I did offer to admit patient for symptomatic bradycardia however she declined states she is ready to go home. We discussed return parameters. Patient to follow up with her tanning solution maker Undiagnosed new problem with uncertain prognosis? @ -No Drug Therapy requiring intensive monitoring for toxicity (Heparin, Nitro, Insulin, Cardizem)? @ -No Were any procedures done? @ -No Diagnosis/symptom? @ -Symptomatic bradycardia Acute, or Chronic, or Acute on Chronic? @ -Acute Uncomplicated (without systemic symptoms) or Complicated (systemic symptoms)? @ -Uncomplicated Side effects of treatment? @ -[No] Exacerbation, Progression, or Severe Exacerbation? @ -[No] Poses a threat to life or bodily function? How? (Chest pain, [place], [place], pneumonia, PE, COPD, DKA, ARF, appy, cholecystitis, CVA, Diverticulitis, Homicidal, Suicidal, threat to staff... and all critical care pts) @ -[No] Dr. Avina is my attending (Joanne Augustin) - Lab Data Lab Results 12/15/22 12/15/22 12/15/22 Range/Units 19:06 19:06 19:06 WBC 9.6 (3.8-10.6) k/uL RBC 5.16 (3.80-5.40) m/uL Hgb 14.9 (11.4-16.0) gm/dL Hct 44.8 (34.0-46.0) % MCV 86.9 (80.0-100.0) fL MCH 29.0 (25.0-35.0) pg MCHC 33.3 (31.0-37.0) g/dL RDW 13.0 (11.5-15.5) % Plt Count 369 (150-450) k/uL MPV 7.8 Neutrophils % 61 % Lymphocytes % 30 % Monocytes % 5 % Eosinophils % 3 % Basophils % 0 % Neutrophils # 5.9 (1.3-7.7) k/uL Lymphocytes # 2.9 (1.0-4.8) k/uL Monocytes # 0.4 (0-1.0) k/uL Eosinophils # 0.3 (0-0.7) k/uL Basophils # 0.0 (0-0.2) k/uL PT 11.2 (9.0-12.0) sec INR 1.1 (<1.2) APTT 24.6 (22.0-30.0) sec Sodium 142 (137-145) mmol/L Potassium 4.5 (3.5-5.1) mmol/L Chloride 110 H (98-107) mmol/L Carbon Dioxide 22 (22-30) mmol/L Anion Gap 10 mmol/L BUN 4 L (7-17) mg/dL Creatinine 0.53 (0.52-1.04) mg/dL Est GFR (CKD-EPI)AfAm >90 (>60 ml/min/1.73 sqM) Est GFR (CKD-EPI)NonAf >90 (>60 ml/min/1.73 sqM) Glucose 86 (74-99) mg/dL Calcium 9.4 (8.4-10.2) mg/dL Magnesium 2.3 (1.6-2.3) mg/dL Total Bilirubin 0.5 (0.2-1.3) mg/dL AST 24 (14-36) U/L ALT 20 (4-34) U/L Alkaline Phosphatase 90 (38-126) U/L Troponin I (0.000-0.034) ng/mL Total Protein 7.7 (6.3-8.2) g/dL Albumin 4.4 (3.5-5.0) g/dL TSH 0.748 (0.465-4.680) mIU/L Urine Color Urine Appearance (Clear) Urine pH (5.0-8.0) Ur Specific Clarence (1.001-1.035) Urine Protein (Negative) Urine Glucose (UA) (Negative) Urine Ketones (Negative) Urine Blood (Negative) Urine Nitrite (Negative) Urine Bilirubin (Negative) Urine Urobilinogen (<2.0) mg/dL Ur Leukocyte Esterase (Negative) Urine RBC (0-5) /hpf Urine WBC (0-5) /hpf Ur Squamous Epith Cells (0-4) /hpf Urine Bacteria (None) /hpf Urine HCG, Qual (Not Detectd) Urine Opiates Screen (NotDetected) Ur Oxycodone Screen (NotDetected) Urine Methadone Screen (NotDetected) Ur Propoxyphene Screen (NotDetected) Ur Barbiturates Screen (NotDetected) U Tricyclic Antidepress (NotDetected) Ur Phencyclidine Scrn (NotDetected) Ur Amphetamines Screen (NotDetected) U Methamphetamines Scrn (NotDetected) U Benzodiazepines Scrn (NotDetected) Urine Cocaine Screen (NotDetected) U Marijuana (THC) Screen (NotDetected) 12/15/22 12/15/22 12/15/22 Range/Units 19:06 21:18 21:18 WBC (3.8-10.6) k/uL RBC (3.80-5.40) m/uL Hgb (11.4-16.0) gm/dL Hct (34.0-46.0) % MCV (80.0-100.0) fL MCH (25.0-35.0) pg MCHC (31.0-37.0) g/dL RDW (11.5-15.5) % Plt Count (150-450) k/uL MPV Neutrophils % % Lymphocytes % % Monocytes % % Eosinophils % % Basophils % % Neutrophils # (1.3-7.7) k/uL Lymphocytes # (1.0-4.8) k/uL Monocytes # (0-1.0) k/uL Eosinophils # (0-0.7) k/uL Basophils # (0-0.2) k/uL PT (9.0-12.0) sec INR (<1.2) APTT (22.0-30.0) sec Sodium (137-145) mmol/L Potassium (3.5-5.1) mmol/L Chloride (98-107) mmol/L Carbon Dioxide (22-30) mmol/L Anion Gap mmol/L BUN (7-17) mg/dL Creatinine (0.52-1.04) mg/dL Est GFR (CKD-EPI)AfAm (>60 ml/min/1.73 sqM) Est GFR (CKD-EPI)NonAf (>60 ml/min/1.73 sqM) Glucose (74-99) mg/dL Calcium (8.4-10.2) mg/dL Magnesium (1.6-2.3) mg/dL Total Bilirubin (0.2-1.3) mg/dL AST (14-36) U/L ALT (4-34) U/L Alkaline Phosphatase (38-126) U/L Troponin I <0.012 (0.000-0.034) ng/mL Total Protein (6.3-8.2) g/dL Albumin (3.5-5.0) g/dL TSH (0.465-4.680) mIU/L Urine Color Light Yellow Urine Appearance Clear (Clear) Urine pH 6.5 (5.0-8.0) Ur Specific Clarence 1.006 (1.001-1.035) Urine Protein Negative (Negative) Urine Glucose (UA) Negative (Negative) Urine Ketones Negative (Negative) Urine Blood Large H (Negative) Urine Nitrite Negative (Negative) Urine Bilirubin Negative (Negative) Urine Urobilinogen <2.0 (<2.0) mg/dL Ur Leukocyte Esterase Negative (Negative) Urine RBC 46 H (0-5) /hpf Urine WBC 1 (0-5) /hpf Ur Squamous Epith Cells <1 (0-4) /hpf Urine Bacteria Rare H (None) /hpf Urine HCG, Qual Not Detected (Not Detectd) Urine Opiates Screen Not Detected (NotDetected) Ur Oxycodone Screen Not Detected (NotDetected) Urine Methadone Screen Not Detected (NotDetected) Ur Propoxyphene Screen Not Detected (NotDetected) Ur Barbiturates Screen Not Detected (NotDetected) U Tricyclic Antidepress Not Detected (NotDetected) Ur Phencyclidine Scrn Not Detected (NotDetected) Ur Amphetamines Screen Not Detected (NotDetected) U Methamphetamines Scrn Not Detected (NotDetected) U Benzodiazepines Scrn Not Detected (NotDetected) Urine Cocaine Screen Not Detected (NotDetected) U Marijuana (THC) Screen Not Detected (NotDetected) Disposition <Brandi Hull - Last Filed: 12/15/22 18:11> Is patient prescribed a controlled substance at d/c from ED?: No <Joanne Augustin - Last Filed: 12/16/22 17:59> Clinical Impression: Symptomatic bradycardia Disposition: HOME SELF-CARE Condition: Fair Instructions (If sedation given, give patient instructions): Bradycardia (ED) Additional Instructions: Do not take propranolol tonight or at all if bradycardia persists. Follow-up with tanning solution maker in 1-2 days. Return to the emergency department if you experience new, concerning, or worsening symptoms Referrals: Bryon Cody DO [Primary Care Provider] - 1-2 days
[2022-12-15 18:14] VITALS: TEMP 98.2
[2022-12-15 19:14] LABS: Basophils % (A) 0 %; Eosinophils # (A) 0.3 k/uL (0-0.7); Eosinophils % (A) 3 %; HCT 44.8 % (34.0-46.0); HGB 14.9 gm/dL (11.4-16.0); Lymphocytes # (A) 2.9 k/uL (1.0-4.8); Lymphocytes % (A) 30 %; MCHC 33.3 g/dL (31.0-37.0); MCV 86.9 fL (80.0-100.0); Mean Platelet Volume 7.8; Monocytes # (A) 0.4 k/uL (0-1.0); Monocytes % (A) 5 %; Neutrophils # (A) 5.9 k/uL (1.3-7.7); Neutrophils % (A) 61 %; Platelet Count 369 k/uL (150-450); RBC 5.16 m/uL (3.80-5.40); WBC 9.6 k/uL (3.8-10.6)
[2022-12-15 19:24] LABS: ALT 20 U/L (4-34); AST 24 U/L (14-36); African American GFR (CKD) >90 (>60 ml/min/1.73 sqM); Albumin 4.4 g/dL (3.5-5.0); Alkaline Phosphatase 90 U/L (38-126); Anion Gap 10 mmol/L; Blood Urea Nitrogen 4 mg/dL (7-17); Calcium 9.4 mg/dL (8.4-10.2); Carbon Dioxide 22 mmol/L (22-30); Chloride 110 mmol/L (98-107); Glucose 86 mg/dL (74-99); Magnesium 2.3 mg/dL (1.6-2.3); Non-African American GFR(CKD) >90 (>60 ml/min/1.73 sqM); Potassium 4.5 mmol/L (3.5-5.1); Sodium 142 mmol/L (137-145); Total Bilirubin 0.5 mg/dL (0.2-1.3); Total Protein 7.7 g/dL (6.3-8.2)
[2022-12-15 19:26] LABS: INR 1.1 (<1.2); Partial Thromboplastin Time 24.6 sec (22.0-30.0); Prothrombin Time 11.2 sec (9.0-12.0)
[2022-12-15 19:29] VITALS: RESP 18
--- NOTE | 2022-12-15 19:43 | XR ---
EXAMINATION TYPE: XR chest 2V DATE OF EXAM: 12/15/2022 7:12 PM COMPARISON: Chest radiographs from 12/21/2021 TECHNIQUE: XR chest 2V Frontal and lateral views of the chest. CLINICAL INDICATION:Female, 27 years old with history of dysrhythmia; FINDINGS: Lungs/Pleura: There is no evidence of pleural effusion, focal consolidation, or pneumothorax. Pulmonary vascularity: Unremarkable. Heart/mediastinum: Cardiomediastinal silhouette is unremarkable. Musculoskeletal: No acute osseous pathology. IMPRESSION: No acute cardiopulmonary disease/process.
[2022-12-15] MEDS ORDERED: SODIUM CHLORIDE 0.9% 1,000 ML IV STA (19:54)
[2022-12-15 21:28] LABS: Appearance,Urine Clear (Clear); Bacteria,Urine Rare /hpf; Bilirubin,Urine Negative (Negative); Blood,Urine Large (Negative); Color,Urine Light Yellow; Glucose,Urine (UA) Negative (Negative); Ketones,Urine Negative (Negative); Leukocyte Esterase,Urine Negative (Negative); Nitrite,Urine Negative (Negative); PH, Urine 6.5 (5.0-8.0); Protein,Urine Negative (Negative); RBC,Urine 46 /hpf (0-5); Specific Gravity,Urine 1.006 (1.001-1.035); Squamous Epithelial Cell,Urine <1 /hpf (0-4); Urobilinogen,Urine <2.0 mg/dL (<2.0); WBC,Urine 1 /hpf (0-5)
[2022-12-15 21:35] LABS: Amphetamine Screen,Urine Not Detected (NotDetected); Barbiturate Screen,Urine Not Detected (NotDetected); Benzodiazepines Screen,Urine Not Detected (NotDetected); Cocaine Screen,Urine Not Detected (NotDetected); Methadone Screen, Urine Not Detected (NotDetected); Opiate Screen,Urine Not Detected (NotDetected); Oxycodone Screen, Urine Not Detected (NotDetected); Phencyclidine Screen,Urine Not Detected (NotDetected); Tricyclic Antidepressant,Urine Not Detected (NotDetected); Urn Cannabinoid Scrn Not Detected (NotDetected)
[2022-12-15 21:36] VITALS: BP 132/82; PULSE 67
== END 2022-12-15 21:35 | disposition home or self-care (01) ==
LOC: EC 16:56
DX: R00.1 Bradycardia, unspecified (principal); J45.909 Unspecified asthma, uncomplicated; Z88.0 Allergy status to penicillin; Z91.010 Allergy to peanuts; Z91.09 Other allergy status, other than to drugs and biological substances
CPT/HCPCS: 36415; 71046; 80053; 80306; 81001; 81025; 83735; 84443; 84484; 85025; 85610; 85730; 93005; 96360; 99285

== ENCOUNTER 2023-07-30 03:44 | Emergency (ER) | payer OTHER ==
[2023-07-30] MEDS: FLUORESCEIN STRIPS 1 MG STRIP LEFT EYE ONE (04:49)
[2023-07-30] MEDS: PROPARACAINE 0.5% OPHTH DROPS 15 ML BTL LEFT EYE STA (04:49)
[2023-07-30] MEDS: SODIUM CHLORIDE 0.9% 1,000 ML IV ONE (05:57)
[2023-07-30] MEDS: METOCLOPRAMIDE 5 MG/ML 2 ML VIAL IVP STA (06:03)
[2023-07-30] MEDS: diphenhydrAMINE 50 MG/ML 1 ML VIAL IVP STA (06:13)
--- NOTE | 2023-07-30 07:48 | ED ---
Eye Problem HPI - General Chief complaint: Eye Problems Stated complaint: Left eye pain, Blurry Vision Time Seen by Provider: 07/30/23 04:07 Source: patient Mode of arrival: ambulatory Limitations: no limitations - History of Present Illness Initial comments: Patient is a 28-year-old woman who presents with eye pain and change in her vision. Patient states that she tends to get this with POTS these. 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 The patient states that she had experienced some blurry vision and seeing some zigzag lines. She then started getting left-sided pain. The patient did not have fever or chills. She did not have any associated injury. chief complaint: eye pain, vision change -: hour(s) Onset Description: gradual Location: left eye Place: home If Injury: none Eye Symptoms: pain, blurry vision Severity: moderate If Pain, Quality: aching Consistency: constant Associated Symptoms: headache Treatments Prior to Arrival: none - Related Data Home Medications Medication Instructions Recorded Confirmed Sertraline HCl [Zoloft] 50 mg PO HS 06/23/21 06/15/23 Allergies Allergy/AdvReac Type Severity Reaction Status Date / Time adhesive tape Allergy Rash/Hives Verified 07/30/23 03:50 amoxicillin [Amoxicillin] Allergy Rash/Hives Verified 07/30/23 03:50 gluten Allergy Rash/Hives Verified 07/30/23 03:50 Penicillins Allergy Rash/Hives Verified 07/30/23 03:50 peanuts AdvReac Nausea Uncoded 07/30/23 03:50 Review of Systems ROS Statement: Those systems with pertinent positive or pertinent negative responses have been documented in the HPI. ROS Other: All systems not noted in ROS Statement are negative. Constitutional: Denies: fever, chills, weakness Eyes: Reports: eye pain, vision change Respiratory: Denies: cough, dyspnea, wheezes Cardiovascular: Denies: chest pain, palpitations Gastrointestinal: Denies: abdominal pain, vomiting Genitourinary: Denies: dysuria, hematuria Musculoskeletal: Denies: back pain Skin: Denies: rash Neurological: Reports: headache. Denies: weakness, numbness, paresthesias, confusion Past Medical History Past Medical History: Asthma Additional Past Medical History / Comment(s): migraines, vertigo, POTS, PCOS, 12/24/19 dislocated right knee and has been in a brace for it and 50% weight bear on that leg. chronic dehydration History of Any Multi-Drug Resistant Organisms: None Reported Past Surgical History: No Surgical Hx Reported Additional Past Surgical History / Comment(s): tubes put in ears Past Anesthesia/Blood Transfusion Reactions: Motion Sickness Past Psychological History: Depression Smoking Status: Never smoker Past Alcohol Use History: None Reported Past Drug Use History: None Reported - Past Family History Mother Family Medical History: No Reported History General Exam Limitations: no limitations General appearance: alert, in no apparent distress Head exam: Present: atraumatic, normocephalic Eye exam: Present: normal appearance, PERRL, EOMI. Absent: scleral icterus, conjunctival injection, nystagmus, periorbital swelling, periorbital tenderness ENT exam: Present: normal oropharynx Neck exam: Present: normal inspection, full ROM. Absent: tenderness, meningismus, lymphadenopathy Respiratory exam: Present: normal lung sounds bilaterally. Absent: respiratory distress, wheezes, rales, rhonchi, stridor Cardiovascular Exam: Present: normal rhythm, tachycardia, normal heart sounds. Absent: systolic murmur, diastolic murmur, rubs, gallop GI/Abdominal exam: Present: soft. Absent: distended, tenderness, guarding, rebound, rigid, mass Extremities exam: Present: normal inspection, normal capillary refill Neurological exam: Present: alert, oriented X3, CN II-XII intact. Absent: motor sensory deficit Skin exam: Present: warm, dry, intact, normal color. Absent: rash Course Vital Signs 07/30/23 07/30/23 07/30/23 03:48 05:31 07:35 Temperature 99.5 F 98.6 F 98.1 F Pulse Rate 135 H 87 97 Respiratory 20 20 18 Rate Blood Pressure 139/111 132/83 124/76 O2 Sat by Pulse 100 100 100 Oximetry Medical Decision Making - Medical Decision Making Patient is a 28-year-old woman presenting with eye pain. The patient states that she has had this previously and was told that it was related to her pots syndrome. The patient had normal intraocular pressure using the iCare device, I measured this To be 16 mmHG. the funduscopic exam was unremarkable, with no edema of the optic disc. I also did perform fluorescein stain and there is no corneal abrasion or foreign body, Sidel sign or any abnormal uptake. Was pt. sent in by a medical professional or institution ([facility]SRIN Vergara, WATER MAIN PIPE LAYER, urgent care, hospital, or group home...) When possible be specific @ -[No] Did you speak to anyone other than the patient for history (EMS, parent, family, police, friend...)? What history was obtained from this source @ -[No] Did you review nursing and triage notes (agree or disagree)? Why? @ -[I reviewed and agree with nursing and triage notes] Were old charts reviewed (outside hosp., previous admission, EMS record, old EKG, old radiological studies, urgent care reports/EKG's, group home records)? Report findings @ -[No old charts were reviewed] Differential Diagnosis (chest pain, altered mental status, abdominal pain women, abdominal pain men, vaginal bleeding, weakness, fever, dyspnea, syncope, headache, dizziness, GI bleed, back pain, seizure, CVA, palpatations, mental health, musculoskeletal)? @ -[Differential Headache: Migraine, tension, cluster, carbon monoxide, central venous thrombosis, pension karma temporal arteritis, acute closure glaucoma, intercranial hemorrhage, mastoiditis, sinusitis, head injury, Related to eye pain, conjunctivitis, corneal abrasion, hordeolum, acute angle- closure glaucoma, orbital cellulitis, herpetic keratitis, uveitis, iritis, scleritis, optic neuritis this is not meant to be an all-inclusive list. EKG interpreted by me (3pts min.). @ -[ X-rays interpreted by me (1pt min.). @ -[None done] CT interpreted by me (1pt min.). @ -[None done] U/S interpreted by me (1pt. min.). @ -[None done] What testing was considered but not performed or refused? (CT, X-rays, U/S, labs)? Why? @ -[None] What meds were considered but not given or refused? Why? @ -[None] Did you discuss the management of the patient with other professionals (professionals i.e. NASRIN Vergara, WATER MAIN PIPE LAYER, lab, RT, psych nurse, social service technician, cheese packer, teacher, guest services officer, onsite case manager)? Give summary @ -[No] Was smoking cessation discussed for >3mins.? @ -[No] Was critical care preformed (if so, how long)? @ -[No] Were there social determinants of health that impacted care today? How? (Homelessness, low income, unemployed, alcoholism, drug addiction, transportation, low edu. Level, literacy, decrease access to med. care, long term, rehab)? @ -[No] Was there de-escalation of care discussed even if they declined (Discuss DNR or withdrawal of care, Hospice)? DNR status @ -[No] What co-morbidities impacted this encounter? (DM, HTN, Smoking, COPD, CAD, Cancer, CVA, ARF, Chemo, Hep., AIDS, mental health diagnosis, sleep apnea, morbid obesity)? @ -[None] Was patient admitted / discharged? Hospital course, mention meds given and route, prescriptions, significant lab abnormalities, going to OR and other pertinent info. @ -[The patient has had near total resolution of symptoms. We discussed appropriate further care and follow-up as well as return parameters Undiagnosed new problem with uncertain prognosis? @ -[No] Drug Therapy requiring intensive monitoring for toxicity (Heparin, Nitro, Insulin, Cardizem)? @ -[No] Were any procedures done? @ -[No] Diagnosis/symptom? @ -[POTS syndrome Eye pain Migraine Acute, or Chronic, or Acute on Chronic? @ -[Acute Uncomplicated (without systemic symptoms) or Complicated (systemic symptoms)? @ -[Uncomplicated Side effects of treatment? @ -[No] Exacerbation, Progression, or Severe Exacerbation? @ -[No] Poses a threat to life or bodily function? How? (Chest pain, [place], [place], pneumonia, PE, COPD, DKA, ARF, appy, cholecystitis, CVA, Diverticulitis, Homicidal, Suicidal, threat to staff... and all critical care pts) @ -[No] Disposition Clinical Impression: POTS (postural orthostatic tachycardia syndrome), Migraine Disposition: HOME SELF-CARE Condition: Good Instructions (If sedation given, give patient instructions): Migraine Headache (ED) Is patient prescribed a controlled substance at d/c from ED?: No Referrals: Bryon Cody DO [Primary Care Provider] - 1-2 days Maria Esther Dent MD [REFERRING] - 1-2 days
[2023-07-30 08:02] VITALS: BP 124/76; PULSE 97; RESP 18; TEMP 98.1
== END 2023-07-30 07:59 | disposition home or self-care (01) ==
LOC: EC 03:44
DX: G90.A Postural orthostatic tachycardia syndrome [POTS] (principal); G43.909 Migraine, unspecified, not intractable, without status migrainosus; Z88.0 Allergy status to penicillin; Z91.010 Allergy to peanuts; Z88.8 Allergy status to other drugs, medicaments and biological substances
CPT/HCPCS: 99283; 96374; 96375; 96361 ×2; J1200; J2765

== ENCOUNTER 2024-02-03 12:23 | Emergency (ER) | payer MEDICAID ==
[2024-02-03 12:32] VITALS: TEMP 98
--- NOTE | 2024-02-03 13:13 | ED ---
Arrhythmia/Palpitations HPI - General Chief Complaint: Arrhythmia/Palpitations Stated Complaint: abn heartrate, o2 levels Time Seen by Provider: 02/03/24 12:48 Source: patient, RN notes reviewed, old records reviewed Mode of arrival: ambulatory Limitations: no limitations - History of Present Illness Initial Comments: 29-year-old female presenting with palpitations, and hypoxia. Patient states she checks her pulse ox and heart rate routinely. She does have black nail kaz[place] on but states that her home oxygen saturation was 75%. At this time her she had a racing heart with a reported heart rate of 190. She reports that she has POTS and is being worked up for this condition. No central chest pain. No fever. - Related Data Home Medications Medication Instructions Recorded Confirmed Sertraline HCl [Zoloft] 50 mg PO HS 06/23/21 06/15/23 Allergies Allergy/AdvReac Type Severity Reaction Status Date / Time adhesive tape Allergy Rash/Hives Verified 07/30/23 03:50 amoxicillin [Amoxicillin] Allergy Rash/Hives Verified 07/30/23 03:50 gluten Allergy Rash/Hives Verified 07/30/23 03:50 Penicillins Allergy Rash/Hives Verified 07/30/23 03:50 peanuts AdvReac Nausea Uncoded 07/30/23 03:50 Review of Systems ROS Statement: Those systems with pertinent positive or pertinent negative responses have been documented in the HPI. ROS Other: All systems not noted in ROS Statement are negative. Past Medical History Past Medical History: Asthma Additional Past Medical History / Comment(s): migraines, vertigo, POTS, PCOS, 12/24/19 dislocated right knee and has been in a brace for it and 50% weight bear on that leg. chronic dehydration, mast cell activation syndrome History of Any Multi-Drug Resistant Organisms: None Reported Past Surgical History: No Surgical Hx Reported Additional Past Surgical History / Comment(s): tubes put in ears Past Anesthesia/Blood Transfusion Reactions: Motion Sickness Past Psychological History: Depression Smoking Status: Never smoker Past Alcohol Use History: None Reported Past Drug Use History: None Reported - Past Family History Mother Family Medical History: No Reported History General Exam Limitations: no limitations General appearance: alert, in no apparent distress Head exam: Present: atraumatic, normocephalic Eye exam: Present: normal appearance, PERRL ENT exam: Present: mucous membranes moist Neck exam: Present: normal inspection. Absent: tenderness, meningismus Respiratory exam: Present: normal lung sounds bilaterally. Absent: respiratory distress Cardiovascular Exam: Present: regular rate, normal rhythm GI/Abdominal exam: Present: soft. Absent: distended, tenderness, guarding, kleber ound Extremities exam: Present: normal inspection Neurological exam: Present: alert, oriented X3 Psychiatric exam: Present: normal affect, normal mood Skin exam: Present: warm, dry, intact Course Vital Signs 02/03/24 02/03/24 12:28 12:44 Temperature 98 F Pulse Rate 115 H 88 Respiratory 18 18 Rate Blood Pressure 128/99 119/79 O2 Sat by Pulse 98 96 Oximetry Medical Decision Making - Medical Decision Making Was pt. sent in by a medical professional or institution (, PA, ECHO VASCULAR TECH, urgent care, hospital, or half-way...) When possible be specific @ -No Did you speak to anyone other than the patient for history (EMS, parent, family, police, friend...)? What history was obtained from this source @ -No Did you review nursing and triage notes (agree or disagree)? Why? @ -I reviewed and agree with nursing and triage notes Were old charts reviewed (outside hosp., previous admission, EMS record, old EKG, old radiological studies, urgent care reports/EKG's, half-way records)? Report findings @ -No old charts were reviewed Differential Palpitations Ventricular arrhythmias, atrial arrhythmias, myocardial infarction, anemia, thyrotoxicosis, electrolyte imbalance, hypokalemia, pulmonary embolism, pulmonary disease, drugs, alcohol, anxiety, stress.... This is not meant to be an all-inclusive list. EKG interpreted by me (3pts min.). @ -EKG: Sinus rhythm rate of 82, MO interval 158, QRS duration 86, QTc [address] segment elevation. X-rays interpreted by me (1pt min.). @ -None done CT interpreted by me (1pt min.). @ -None done U/S interpreted by me (1pt. min.). @ -None done What testing was considered but not performed or refused? (CT, X-rays, U/S, labs )? Why? @ -None What meds were considered but not given or refused? Why? @ -None Did you discuss the management of the patient with other professionals (professionals i.e. , PA, ECHO VASCULAR TECH, lab, RT, psych nurse, social work associate, brake repairer hydraulic, teacher, chief human resources officer, case management rn)? Give summary @ -No Was smoking cessation discussed for >3mins.? @ -No Was critical care preformed (if so, how long)? @ -No Were there social determinants of health that impacted care today? How? (Homelessness, low income, unemployed, alcoholism, drug addiction, transportation, low edu. Level, literacy, decrease access to med. care, shelter, rehab)? @ -No Was there de-escalation of care discussed even if they declined (Discuss DNR or withdrawal of care, Hospice)? DNR status @ -No What co-morbidities impacted this encounter? (DM, HTN, Smoking, COPD, CAD, Cancer, CVA, ARF, Chemo, Hep., AIDS, mental health diagnosis, sleep apnea, morbid obesity)? @ -POTS Was patient admitted / discharged? Hospital course, mention meds given and route, prescriptions, significant lab abnormalities, going to OR and other pertinent info. @ -[29-year-old female with palpitations, abnormal vital signs at home. Patient vital signs are stable in the emergency department. She is in sinus rhythm which is rate controlled. No signs of hypoxia no cyanosis. No respiratory distress. CBC, CMP and troponin testing is unremarkable. Patient reassured. She will monitor her vital signs at home and return with worsening symptoms. She should continue to follow-up as an outpatient. Undiagnosed new problem with uncertain prognosis? @ -No Drug Therapy requiring intensive monitoring for toxicity (Heparin, Nitro, Insulin, Cardizem)? @ -No Were any procedures done? @ -No Diagnosis/symptom? @Heart palpitations Acute, or Chronic, or Acute on Chronic? @ -Acute on chronic Uncomplicated (without systemic symptoms) or Complicated (systemic symptoms)? @ -Default Side effects of treatment? @ -No Exacerbation, Progression, or Severe Exacerbation? @ -No Poses a threat to life or bodily function? How? (Chest pain, [place], [place], pneumonia, PE, COPD, DKA, ARF, appy, cholecystitis, CVA, Diverticulitis, Homicidal, Suicidal, threat to staff... and all critical care pts) @ -[Low risk at this time - Lab Data Result diagrams: 02/03/24 13:11 02/03/24 13:11 Lab Results 02/03/24 02/03/24 02/03/24 Range/Units 13:11 13:11 13:11 WBC 9.1 (3.8-10.6) k/uL RBC 5.10 (3.80-5.40) m/uL Hgb 14.6 (11.4-16.0) gm/dL Hct 44.6 (34.0-46.0) % MCV 87.4 (80.0-100.0) fL MCH 28.6 (25.0-35.0) pg MCHC 32.7 (31.0-37.0) g/dL RDW 12.9 (11.5-15.5) % Plt Count 302 (150-450) k/uL MPV 7.4 Neutrophils % 64 % Lymphocytes % 26 % Monocytes % 6 % Eosinophils % 2 % Basophils % 0 % Neutrophils # 5.9 (1.3-7.7) k/uL Lymphocytes # 2.3 (1.0-4.8) k/uL Monocytes # 0.6 (0-1.0) k/uL Eosinophils # 0.2 (0-0.7) k/uL Basophils # 0.0 (0-0.2) k/uL PT 11.1 (10.0-12.5) sec INR 1.0 (<1.2) APTT 25.0 (22.0-30.0) sec Sodium 140 (137-145) mmol/L Potassium 4.3 (3.5-5.1) mmol/L Chloride 112 H (98-107) mmol/L Carbon Dioxide 21 L (22-30) mmol/L Anion Gap 7 mmol/L BUN 11 (7-17) mg/dL Creatinine 0.66 (0.52-1.04) mg/dL Est GFR (CKD-EPI)AfAm >90 (>60 ml/min/1.73 sqM) Est GFR (CKD-EPI)NonAf >90 (>60 ml/min/1.73 sqM) Glucose 91 (74-99) mg/dL Calcium 9.4 (8.4-10.2) mg/dL Magnesium 2.0 (1.6-2.3) mg/dL Total Bilirubin 0.4 (0.2-1.3) mg/dL AST 31 (14-36) U/L ALT 23 (4-34) U/L Alkaline Phosphatase 73 (38-126) U/L Troponin I (0.000-0.034) ng/mL Total Protein 7.4 (6.3-8.2) g/dL Albumin 4.3 (3.5-5.0) g/dL 02/03/24 Range/Units 13:11 WBC (3.8-10.6) k/uL RBC (3.80-5.40) m/uL Hgb (11.4-16.0) gm/dL Hct (34.0-46.0) % MCV (80.0-100.0) fL MCH (25.0-35.0) pg MCHC (31.0-37.0) g/dL RDW (11.5-15.5) % Plt Count (150-450) k/uL MPV Neutrophils % % Lymphocytes % % Monocytes % % Eosinophils % % Basophils % % Neutrophils # (1.3-7.7) k/uL Lymphocytes # (1.0-4.8) k/uL Monocytes # (0-1.0) k/uL Eosinophils # (0-0.7) k/uL Basophils # (0-0.2) k/uL PT (10.0-12.5) sec INR (<1.2) APTT (22.0-30.0) sec Sodium (137-145) mmol/L Potassium (3.5-5.1) mmol/L Chloride (98-107) mmol/L Carbon Dioxide (22-30) mmol/L Anion Gap mmol/L BUN (7-17) mg/dL Creatinine (0.52-1.04) mg/dL Est GFR (CKD-EPI)AfAm (>60 ml/min/1.73 sqM) Est GFR (CKD-EPI)NonAf (>60 ml/min/1.73 sqM) Glucose (74-99) mg/dL Calcium (8.4-10.2) mg/dL Magnesium (1.6-2.3) mg/dL Total Bilirubin (0.2-1.3) mg/dL AST (14-36) U/L ALT (4-34) U/L Alkaline Phosphatase (38-126) U/L Troponin I <0.012 (0.000-0.034) ng/mL Total Protein (6.3-8.2) g/dL Albumin (3.5-5.0) g/dL Disposition Clinical Impression: Palpitations Disposition: HOME SELF-CARE Condition: Good Instructions (If sedation given, give patient instructions): Heart Palpitations (ED) Is patient prescribed a controlled substance at d/c from ED?: No Referrals: Bryon Cody DO [Primary Care Provider] - 1-2 days Time of Disposition: 13:52
[2024-02-03 13:18] LABS: Basophils % (A) 0 %; Eosinophils # (A) 0.2 k/uL (0-0.7); Eosinophils % (A) 2 %; HCT 44.6 % (34.0-46.0); HGB 14.6 gm/dL (11.4-16.0); Lymphocytes # (A) 2.3 k/uL (1.0-4.8); Lymphocytes % (A) 26 %; MCH 28.6 pg (25.0-35.0); MCHC 32.7 g/dL (31.0-37.0); MCV 87.4 fL (80.0-100.0); Mean Platelet Volume 7.4; Monocytes # (A) 0.6 k/uL (0-1.0); Monocytes % (A) 6 %; Neutrophils # (A) 5.9 k/uL (1.3-7.7); Neutrophils % (A) 64 %; Platelet Count 302 k/uL (150-450); RDW 12.9 % (11.5-15.5); WBC 9.1 k/uL (3.8-10.6)
[2024-02-03] MEDS: SODIUM CHLORIDE 0.9% 500 ML 500 ML IV STA (13:19)
[2024-02-03 13:30] LABS: Prothrombin Time 11.1 sec (10.0-12.5)
[2024-02-03 13:34] LABS: ALT 23 U/L (4-34); AST 31 U/L (14-36); African American GFR (CKD) >90 (>60 ml/min/1.73 sqM); Albumin 4.3 g/dL (3.5-5.0); Alkaline Phosphatase 73 U/L (38-126); Anion Gap 7 mmol/L; Blood Urea Nitrogen 11 mg/dL (7-17); Calcium 9.4 mg/dL (8.4-10.2); Carbon Dioxide 21 mmol/L (22-30); Chloride 112 mmol/L (98-107); Glucose 91 mg/dL (74-99); Non-African American GFR(CKD) >90 (>60 ml/min/1.73 sqM); Potassium 4.3 mmol/L (3.5-5.1); Sodium 140 mmol/L (137-145); Total Bilirubin 0.4 mg/dL (0.2-1.3); Total Protein 7.4 g/dL (6.3-8.2)
[2024-02-03 14:11] VITALS: BP 138/99; PULSE 81; RESP 16
== END 2024-02-03 14:10 | disposition home or self-care (01) ==
LOC: EC 12:23
DX: R00.2 Palpitations (principal); G90.A Postural orthostatic tachycardia syndrome [POTS]; Z88.0 Allergy status to penicillin; Z91.048 Other nonmedicinal substance allergy status; Z91.018 Allergy to other foods
CPT/HCPCS: 36415; 80053; 83735; 84484; 85025; 85610; 85730; 93005; 99285

== ENCOUNTER 2024-07-30 13:40 | Emergency (ER) | payer OTHER ==
[2024-07-30 14:04] VITALS: TEMP 97.9
--- NOTE | 2024-07-30 14:16 | ED ---
General Adult HPI - General Chief complaint: Syncope Stated complaint: syncope Time Seen by Provider: 07/30/24 14:09 Source: patient Mode of arrival: wheelchair Limitations: no limitations - History of Present Illness Initial comments: Dictation was produced using [employer] dictation software. please excuse any grammatical, word or spelling errors. Chief Complaint: 29-year-old female with history of PCOS, tachycardia and psychogenic seizures presents to the ER after syncopal episode History of Present Illness: Patient 29-year-old female denies any history of cardiomyopathy. She does report history of POTS. She has had multiple syncopal episodes in the past. 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 States that she is had another episode of syncope. Denies any trauma. Denies any headache or pain. States that she gets fluids ordered weekly by one of her clinic doctors. Patient otherwise feels well. Denies any chest pain shortness of breath. The ROS documented in this emergency department record has been reviewed and confirmed by me. Those systems with pertinent positive or negative responses have been documented in the HPI. All other systems are other negative and/or noncontributory. - Related Data Home Medications Medication Instructions Recorded Confirmed Loratadine [Claritin] 10 mg PO DAILY PRN 07/30/24 07/30/24 Allergies Allergy/AdvReac Type Severity Reaction Status Date / Time adhesive tape Allergy Rash/Hives Verified 07/30/24 14:45 amoxicillin [Amoxicillin] Allergy Rash/Hives Verified 07/30/24 14:45 gluten Allergy Rash/Hives Verified 07/30/24 14:45 Penicillins Allergy Rash/Hives Verified 07/30/24 14:45 peanut AdvReac Nausea Verified 07/30/24 14:45 Review of Systems ROS Statement: Those systems with pertinent positive or pertinent negative responses have been documented in the HPI. ROS Other: All systems not noted in ROS Statement are negative. Past Medical History Past Medical History: Asthma Additional Past Medical History / Comment(s): migraines, vertigo, POTS, PCOS, 12/24/19 dislocated right knee and has been in a brace for it and 50% weight bear on that leg. chronic dehydration, mast cell activation syndrome History of Any Multi-Drug Resistant Organisms: None Reported Past Surgical History: No Surgical Hx Reported Additional Past Surgical History / Comment(s): tubes put in ears Past Anesthesia/Blood Transfusion Reactions: Motion Sickness Past Psychological History: Depression Smoking Status: Never smoker Past Alcohol Use History: None Reported Past Drug Use History: None Reported - Past Family History Mother Family Medical History: No Reported History General Exam - General Exam Comments Initial Comments: PHYSICAL EXAM: General Impression: Alert and oriented x3, not in acute distress HEENT: Normocephalic atraumatic, extra-ocular movements intact, pupils equal and reactive to light bilaterally, mucous membranes moist. Cardiovascular: Heart regular rate and rhythm Chest: Able to complete full sentences, no retractions, no tachypnea Abdomen: abdomen soft, non-tender, non-distended, no organomegaly Musculoskeletal: Pulses present and equal in all extremities, no peripheral edema Motor: no focal deficits noted Neurological: CN II-XII grossly intact, no focal motor or sensory deficits noted Skin: Intact with no visualized rashes Psych: Normal affect and mood Limitations: no limitations Course Vital Signs 07/30/24 14:01 Temperature 97.9 F Pulse Rate 105 H Respiratory 18 Rate Blood Pressure 127/85 O2 Sat by Pulse 100 Oximetry EKG Findings - EKG Comments: EKG Findings:: My EKG interpretation: Ventricular rate 93, sinus rhythm,. 159, QRS 80, QTc 384. No DC prolongation, no QTC prolongation, no ST or T-wave changes noted. Overall, this EKG is unremarkable Medical Decision Making - Medical Decision Making Was pt. sent in by a medical professional or institution (NASRIN Vergara, PRE PLANNING ADVISOR, urgent care, hospital, or correction...) When possible be specific @ -No Did you speak to anyone other than the patient for history (EMS, parent, family, police, friend...)? What history was obtained from this source @ -No Did you review nursing and triage notes (agree or disagree)? Why? @ -I reviewed and agree with nursing and triage notes Were old charts reviewed (outside hosp., previous admission, EMS record, old EKG, old radiological studies, urgent care reports/EKG's, correction records)? Report findings @ -No old charts were reviewed Differential Diagnosis (chest pain, altered mental status, abdominal pain women, abdominal pain men, vaginal bleeding, musculoskeletal, weakness, fever, dyspnea, syncope, headache, dizziness, GI bleed, back pain, seizure, CVA, palpatations, mental health)? @ -Differential Syncope: Valvular disease, hypertrophic cardiomyopathy, pulmonary embolism, tamponade, tachycardia, bradycardia, [place], hypovolemia, hemorrhage, dissection, anemia, intracranial hemorrhage, seizure, hypoglycemia, carbon monoxide poisoning, this is not meant to be an all-inclusive list. EKG interpreted by me (3pts min.). @ -See above X-rays interpreted by me (1pt min.). @ -None done CT interpreted by me (1pt min.). @ -None done U/S interpreted by me (1pt. min.). @ -None done What testing was considered but not performed or refused? (CT, X-rays, U/S, labs)? Why? @ -None What meds were considered but not given or refused? Why? @ -None Was smoking cessation discussed for >3mins.? @ -No Were there social determinants of health that impacted care today? How? (Ho melessness, low income, unemployed, alcoholism, drug addiction, transportation, low edu. Level, literacy, decrease access to med. care, long term, rehab)? @ -No Was there de-escalation of care discussed even if they declined (Discuss DNR or withdrawal of care, Hospice)? DNR status @ -No What co-morbidities impacted this encounter? (DM, HTN, Smoking, COPD, CAD, Cancer, CVA, ARF, Chemo, Hep., AIDS, mental health diagnosis, sleep apnea, morbid obesity)? @ -History of syncope Was patient admitted / discharged? Hospital course, mention meds given and route, prescriptions, significant lab abnormalities, going to OR and other pertinent info. @ -29-year-old female with history of syncope and paroxysmal tachycardia syndrome presents to the ER after syncopal episode at work. Patient has no history of cardiomyopathy. Stable. Patient well-appearing at the bedside. Patient given IV fluids. Labs unremarkable. Patient discharged no high risk features Did you discuss the management of the patient with other professionals (professionals i.e. , PA, PRE PLANNING ADVISOR, lab, RT, psych nurse, director of social services, immigration lawyer, teacher, security police officer, outsole caser)? Give summary @ -No Was critical care preformed (if so, how long)? @ -No Undiagnosed new problem with uncertain prognosis? @ -No Drug Therapy requiring intensive monitoring for toxicity (Heparin, Nitro, Insulin, Cardizem)? @ -No Were any procedures done? @ -No Diagnosis/symptom? Acute, or Chronic, or Acute on Chronic? Uncomplicated (without systemic symptoms) or Complicated (systemic symptoms)? @ -Syncope, no high risk features Side effects of treatment? @ -No Exacerbation, Progression, or Severe Exacerbation? @ -No Poses a threat to life or bodily function? How? (Chest pain, [place], [place], pneumonia, PE, COPD, DKA, ARF, appy, cholecystitis, CVA, Diverticulitis, Homicidal, Suicidal, threat to staff... and all critical care pts) @ -No - Lab Data Result diagrams: 07/30/24 14:13 07/30/24 14:13 Lab Results 07/30/24 07/30/24 Range/Units 14:13 14:13 WBC 7.66 (4.50-10.00) 10*3/uL RBC 5.10 (4.10-5.20) 10*6/uL Hgb 14.6 (12.0-15.0) g/dL Hct 43.2 (37.2-46.3) % MCV 84.7 (80.0-97.0) fL MCH 28.6 (27.0-32.0) pg MCHC 33.8 (32.0-37.0) g/dL Plt Count 325 (140-440) 10*3/uL MPV 9.7 (9.5-12.2) fL Immature Gran % (Auto) 0.3 % Neutrophils % 65.0 % Lymphocytes % 24.7 % Monocytes % 8.7 % Eosinophils % 1.0 % Basophils % 0.3 % Immature Gran # 0.02 (0.00-0.04) 10*3/uL Neutrophils # 4.98 (1.80-7.70) 10*3/uL Lymphocytes # 1.89 (0.90-5.00) 10*3/uL Monocytes # 0.67 (0.20-1.00) 10*3/uL Eosinophils # 0.08 (0.04-0.35) 10*3/uL Basophils # 0.02 (0.00-0.10) 10*3/uL Sodium 140 (137-145) mmol/L Potassium 3.9 (3.5-5.1) mmol/L Chloride 108 H (98-107) mmol/L Carbon Dioxide 21 L (22-30) mmol/L Anion Gap 11 mmol/L BUN 10 (7-17) mg/dL Creatinine 0.62 (0.52-1.04) mg/dL Est GFR (CKD-EPI)AfAm >90 (>60 ml/min/1.73 sqM) Est GFR (CKD-EPI)NonAf >90 (>60 ml/min/1.73 sqM) Glucose 100 H (74-99) mg/dL Calcium 9.9 (8.4-10.2) mg/dL Disposition Clinical Impression: Syncope Disposition: HOME SELF-CARE Condition: Fair Instructions (If sedation given, give patient instructions): Syncope (ED) Is patient prescribed a controlled substance at d/c from ED?: No Referrals: Bryon Cody DO [Primary Care Provider] - 1-2 days Time of Disposition: 15:06
[2024-07-30 14:54] LABS: Basophils # (A) 0.02 10*3/uL (0.00-0.10); Basophils % (A) 0.3 %; Eosinophils # (A) 0.08 10*3/uL (0.04-0.35); HCT 43.2 % (37.2-46.3); HGB 14.6 g/dL (12.0-15.0); Lymphocytes # (A) 1.89 10*3/uL (0.90-5.00); Lymphocytes % (A) 24.7 %; MCH 28.6 pg (27.0-32.0); MCHC 33.8 g/dL (32.0-37.0); MCV 84.7 fL (80.0-97.0); Mean Platelet Volume 9.7 fL (9.5-12.2); Monocytes # (A) 0.67 10*3/uL (0.20-1.00); Monocytes % (A) 8.7 %; Neutrophils # (A) 4.98 10*3/uL (1.80-7.70); Platelet Count 325 10*3/uL (140-440); RDW 12.5 % (11.5-14.5); WBC 7.66 10*3/uL (4.50-10.00)
[2024-07-30] MEDS: SODIUM CHLORIDE 0.9% 2,000 ML IV STA (15:02)
[2024-07-30 15:10] LABS: African American GFR (CKD) >90 (>60 ml/min/1.73 sqM); Anion Gap 11 mmol/L; Blood Urea Nitrogen 10 mg/dL (7-17); Calcium 9.9 mg/dL (8.4-10.2); Carbon Dioxide 21 mmol/L (22-30); Chloride 108 mmol/L (98-107); Glucose 100 mg/dL (74-99); Non-African American GFR(CKD) >90 (>60 ml/min/1.73 sqM); Potassium 3.9 mmol/L (3.5-5.1); Sodium 140 mmol/L (137-145)
[2024-07-30 17:16] VITALS: BP 129/89; PULSE 76; RESP 16
== END 2024-07-30 17:27 | disposition home or self-care (01) ==
LOC: EC 13:40
DX: R55 Syncope and collapse (principal); Z88.0 Allergy status to penicillin; Z91.010 Allergy to peanuts; Z91.09 Other allergy status, other than to drugs and biological substances
CPT/HCPCS: 36415; 80048; 85025; 96360; 96361; 99284